=== PATIENT | male | born 1955 | race Caucasian/White ===

== ENCOUNTER 2019-07-25 15:29 | Inpatient (IN) ==
[2019-07-25] MEDS ORDERED: Naloxone 0.4 MG/ML INJ IVP PRN (17:26)
[2019-07-25] MEDS ORDERED: Morphine Sulfate Immed Rel 15 MG TABLET PO PRN (17:29)
[2019-07-25 17:33] LABS: Basophils % 0.4 %; Eosinophils # 0.1 K/mcL (0.0-0.6); Eosinophils % 0.9 %; Hematocrit 37.8 % (37.5-50.1); Hemoglobin 13.1 g/dL (12.9-16.9); Lymphocytes # 1.2 K/mcL (0.6-4.6); Lymphocytes % 11.6 %; Mean Corpuscular HGB Conc 34.7 g/dL (31.6-35.5); Mean Corpuscular Hemoglobin 29.3 pg (28.0-33.3); Mean Corpuscular Volume 84.6 fL (83.0-100.0); Mean Platelet Volume 9.3 fL (9.4-12.4); Monocytes # 0.7 K/mcL (0.0-1.3); Monocytes % 7.1 %; Neutrophils # 8.3 K/mcL (1.6-8.9); Platelet Count 364 K/mcL (140-400); Red Blood Count 4.47 M/mcL (4.19-5.50); Red Cell Distribution Width 13.5 % (11.5-14.5); White Blood Count 10.5 K/mcL (4.3-11.1)
[2019-07-25 17:52] LABS: Alanine Aminotransferase 12 Units/L (7-52); Albumin 3.9 g/dL (3.5-5.7); Albumin/Globulin Ratio 1.4 (1.1-2.2); Alkaline Phosphatase 60 Units/L (34-104); Aspartate Amino Transferase 11 Units/L (13-39); BUN/Creatinine Ratio 9 (6-26); Bilirubin,Total 0.3 mg/dL (0.3-1.0); Blood Urea Nitrogen 6 mg/dL (8-23); Calcium 9.1 mg/dL (8.6-10.3); Carbon Dioxide 27 mEq/L (23-29); Chloride 98 mEq/L (98-107); Globulin 2.7 g/dL (2.4-3.5); Glucose 112 mg/dL (70-105); Osmolality,Calculated 276 (280-300); Sodium 134 mEq/L (136-145); Total Protein 6.6 g/dL (6.4-8.9); eGFR For African Americans > 60 (> 60); eGFR For Non-African Americans > 60 (> 60)
[2019-07-25] MEDS: Ondansetron 4 MG/2 ML VIAL IVP PRN (23:39)
[2019-07-25] MEDS ORDERED: *HR* HYDROmorphone 2 MG TABLET PO ONE (23:48)
[2019-07-26] MEDS ORDERED: NIFEdipine 10 MG CAPSULE PO ONE (02:19)
[2019-07-26] MEDS: Morphine Sulfate Immed Rel 15 MG TABLET PO SCH ×6 (03:15→23:08)
[2019-07-26] MEDS ORDERED: Morphine Sulfate Immed Rel 15 MG TABLET PO SCH (03:15)
[2019-07-26 04:37] LABS: INR 1.1
[2019-07-26 04:55] LABS: BUN/Creatinine Ratio 9 (6-26); Blood Urea Nitrogen 6 mg/dL (8-23); Calcium 9.1 mg/dL (8.6-10.3); Carbon Dioxide 29 mEq/L (23-29); Chloride 98 mEq/L (98-107); Glucose 116 mg/dL (70-105); Osmolality,Calculated 279 (280-300); Potassium 3.9 mEq/L (3.5-5.1); Sodium 135 mEq/L (136-145); eGFR For African Americans > 60 (> 60); eGFR For Non-African Americans > 60 (> 60)
[2019-07-26] MEDS ORDERED: Levalbuterol Neb 1.25 MG/3 ML ONE (05:19)
[2019-07-26] MEDS: Levalbuterol Neb 1.25 MG/3 ML IH SCH ×4 (05:21→21:24)
[2019-07-26] MEDS: *HR* Enoxaparin 40 MG/0.4 ML SYRINGE SQ SCH (06:00)
[2019-07-26] MEDS: Morphine Sulfate ER (12 HR) 30 MG TABLET.ER PO SCH ×2 (08:55→18:01)
[2019-07-26] MEDS ORDERED: TIOTROPIUM 2.5 MCG IH SCH (09:00)
[2019-07-26] MEDS ORDERED: FLUTICASONE PROPIONATE IH SCH (09:00)
[2019-07-26] MEDS: Furosemide 20 MG/2 ML VIAL IVP SCH (09:57)
[2019-07-26] MEDS: amLODIPine 5 MG TABLET PO SCH (09:57)
[2019-07-26] MEDS: Cholecalciferol (D-3) 1,000 UNIT (25MCG) TABLET PO SCH (09:57)
[2019-07-26] MEDS: Cyanocobalamin (B-12) 1,000 MCG TABLET PO SCH (09:57)
[2019-07-26] MEDS ORDERED: Levalbuterol Neb 1.25 MG/3 ML IH SCH (10:00)
[2019-07-26] MEDS: Ipratropium/Albuterol Neb 3 ML IH SCH (10:10)
[2019-07-26] MEDS: Budesonide/Formoterol 160/4.5 1 PUFF INH IH SCH ×2 (10:10→21:24)
[2019-07-26 12:40] LABS: Albumin 3.8 g/dL (3.5-5.7); Albumin/Globulin Ratio 1.4 (1.1-2.2); Globulin 2.8 g/dL (2.4-3.5); Lactate Dehydrogenase 306 Units/L (140-271); Total Protein 6.6 g/dL (6.4-8.9)
[2019-07-26] MEDS: Ondansetron 4 MG/2 ML VIAL IVP PRN ×2 (15:30→23:08)
[2019-07-26] MEDS ORDERED: Isovue-370 500 ML BOTTLE IVP ONE (17:51)
[2019-07-26] MEDS: Morphine Sulfate Immed Rel 15 MG TABLET PO PRN (23:23)
[2019-07-27] MEDS: Levalbuterol Neb 1.25 MG/3 ML IH SCH ×2 (04:12→10:58)
[2019-07-27] MEDS: Morphine Sulfate Immed Rel 15 MG TABLET PO PRN ×2 (04:49→10:27)
[2019-07-27 05:48] LABS: BUN/Creatinine Ratio 14 (6-26); Blood Urea Nitrogen 10 mg/dL (8-23); Calcium 9.6 mg/dL (8.6-10.3); Carbon Dioxide 31 mEq/L (23-29); Chloride 95 mEq/L (98-107); Glucose 110 mg/dL (70-105); Osmolality,Calculated 284 (280-300); Potassium 3.5 mEq/L (3.5-5.1); Sodium 137 mEq/L (136-145); eGFR For African Americans > 60 (> 60); eGFR For Non-African Americans > 60 (> 60)
[2019-07-27] MEDS: *HR* Enoxaparin 40 MG/0.4 ML SYRINGE SQ SCH (06:01)
[2019-07-27] MEDS: Morphine Sulfate ER (12 HR) 30 MG TABLET.ER PO SCH (06:01)
[2019-07-27 07:21] VITALS: BP 141/90
[2019-07-27] MEDS: Cyanocobalamin (B-12) 1,000 MCG TABLET PO SCH (10:27)
[2019-07-27] MEDS: amLODIPine 5 MG TABLET PO SCH (10:27)
[2019-07-27] MEDS: Furosemide 20 MG/2 ML VIAL IVP SCH (10:28)
[2019-07-27] MEDS: Cholecalciferol (D-3) 1,000 UNIT (25MCG) TABLET PO SCH (10:28)
[2019-07-27] MEDS: Ondansetron 4 MG/2 ML VIAL IVP PRN (10:38)
[2019-07-27] MEDS: Budesonide/Formoterol 160/4.5 1 PUFF INH IH SCH (10:58)
[2019-07-27] MEDS: Ipratropium/Albuterol Neb 3 ML IH SCH (10:58)
[2019-07-27] MEDS ORDERED: FLU Vac QV 19-20 (6Month+)/PF 0.5 ML SYRINGE IM ONE (13:58)
== END 2019-07-27 14:38 | disposition home health service (06) | DRG 181 ==
LOC: SUATTDRO → EMEROOARM 15:29 → 2NENU 15:29 → SUATTDRO 18:48 → 2NENU 20:12
PROVIDERS: ADMIT Internal Medicine; ATTEND Internal Medicine

== ENCOUNTER 2019-09-01 16:13 | Inpatient (IN) ==
[2019-09-01] MEDS ORDERED: Isovue-370 500 ML BOTTLE IVP ONE (17:09)
[2019-09-01 17:42] LABS: Basophils % 0.3 %; Eosinophils # 0.2 K/mcL (0.0-0.6); Eosinophils % 5.6 %; Hemoglobin 11.1 g/dL (12.9-16.9); Immature Granulocytes % 0.3 % (0-4); Lymphocytes # 0.7 K/mcL (0.6-4.6); Lymphocytes % 18.1 %; Mean Corpuscular HGB Conc 33.6 g/dL (31.6-35.5); Mean Corpuscular Hemoglobin 28.8 pg (28.0-33.3); Mean Corpuscular Volume 85.5 fL (83.0-100.0); Mean Platelet Volume 9.1 fL (9.4-12.4); Monocytes # 0.8 K/mcL (0.0-1.3); Monocytes % 20.8 %; Platelet Count 220 K/mcL (140-400); Red Blood Count 3.86 M/mcL (4.19-5.50); Red Cell Distribution Width 13.2 % (11.5-14.5); Segmented Neutrophils % 54.9 %; White Blood Count 3.6 K/mcL (4.3-11.1)
[2019-09-01 18:05] LABS: Platelet Estimate Normal (Normal)
[2019-09-01 18:06] LABS: Alanine Aminotransferase 14 Units/L (7-52); Albumin 3.7 g/dL (3.5-5.7); Albumin/Globulin Ratio 1.4 (1.1-2.2); Alkaline Phosphatase 60 Units/L (34-104); Aspartate Amino Transferase 15 Units/L (13-39); BUN/Creatinine Ratio 11 (6-26); Bilirubin,Direct 0.1 mg/dL (0.0-0.2); Bilirubin,Indirect 0.1 mg/dL (0.0-1.0); Bilirubin,Total 0.2 mg/dL (0.3-1.0); Blood Urea Nitrogen 7 mg/dL (8-23); Carbon Dioxide 36 mEq/L (23-29); Chloride 91 mEq/L (98-107); Globulin 2.7 g/dL (2.4-3.5); Glucose 120 mg/dL (70-105); Osmolality,Calculated 281 (280-300); Potassium 3.7 mEq/L (3.5-5.1); Sodium 136 mEq/L (136-145); Total Protein 6.4 g/dL (6.4-8.9); Troponin I < 0.03 ng/mL (< 0.04); eGFR For African Americans > 60 (> 60); eGFR For Non-African Americans > 60 (> 60)
[2019-09-01] MEDS ORDERED: Morphine Sulfate 2 MG/ML SYRINGE IVP STA (20:17)
[2019-09-01] MEDS ORDERED: Ondansetron 4 MG/2 ML VIAL IVP STA (20:33)
[2019-09-01] MEDS ORDERED: Naloxone 0.4 MG/ML INJ IVP PRN (23:18)
[2019-09-01] MEDS ORDERED: Morphine Sulfate Immed Rel 15 MG TABLET PO PRN (23:27)
[2019-09-02] MEDS ORDERED: Acetaminophen 325 MG TABLET PO ONE (01:02)
[2019-09-02] MEDS: Morphine Sulfate Immed Rel 15 MG TABLET PO PRN ×3 (01:32→23:30)
[2019-09-02 05:38] LABS: Hematocrit 36.1 % (37.5-50.1); Hemoglobin 11.5 g/dL (12.9-16.9); Mean Corpuscular HGB Conc 31.9 g/dL (31.6-35.5); Platelet Count 229 K/mcL (140-400); Red Cell Distribution Width 13.2 % (11.5-14.5); Segmented Neutrophils % 30.3 %; White Blood Count 3.9 K/mcL (4.3-11.1)
[2019-09-02 05:39] LABS: Basophils % 0.3 %; Eosinophils # 0.2 K/mcL (0.0-0.6); Eosinophils % 6.2 %; Immature Granulocytes % 0.3 % (0-4); Lymphocytes # 1.6 K/mcL (0.6-4.6); Lymphocytes % 40.8 %; Monocytes # 0.9 K/mcL (0.0-1.3); Monocytes % 22.1 %; Neutrophils # 1.2 K/mcL (1.6-8.9)
[2019-09-02] MEDS ORDERED: Morphine Sulfate ER (12 HR) 30 MG TABLET.ER PO SCH (06:00)
[2019-09-02 06:06] LABS: BUN/Creatinine Ratio 10 (6-26); Blood Urea Nitrogen 7 mg/dL (8-23); Calcium 9.3 mg/dL (8.6-10.3); Carbon Dioxide 41 mEq/L (23-29); Chloride 92 mEq/L (98-107); Glucose 114 mg/dL (70-105); Osmolality,Calculated 289 (280-300); Platelet Estimate Normal (Normal); Potassium 3.7 mEq/L (3.5-5.1); Sodium 140 mEq/L (136-145); eGFR For African Americans > 60 (> 60); eGFR For Non-African Americans > 60 (> 60)
[2019-09-02] MEDS: *HR* Heparin 5,000 UNIT/ML VIAL SQ SCH ×2 (06:13→12:38)
[2019-09-02] MEDS: Morphine Sulfate ER (12 HR) 30 MG TABLET.ER PO SCH ×2 (06:13→18:03)
[2019-09-02] MEDS ORDERED: AIRDUO RESPICLICK IH SCH (09:00)
[2019-09-02] MEDS ORDERED: Furosemide 20 MG TABLET PO SCH (09:00)
[2019-09-02] MEDS: Furosemide 40 MG/4 ML VIAL IVP SCH (10:50)
[2019-09-02] MEDS: amLODIPine 5 MG TABLET PO SCH (10:51)
[2019-09-02] MEDS: Fluticasone Propionate Nasal 50 MCG/SPRAY BOTTLE NS SCH (10:51)
[2019-09-02] MEDS: Budesonide/Formoterol 80/4.5 1 PUFF INH IH SCH ×2 (10:52→20:28)
[2019-09-02 11:41] LABS: INR 1.1; Prothrombin Time 12.9 Seconds (9.4-12.1)
[2019-09-02 14:41] LABS: ABG Base Excess 15 mEq/L (-2 to 3); ABG HCO3 43 mEq/L (21-27); ABG Oxygen Saturation 93 % (95-98); ABG PCO2 75 mmHg (35-45); ABG PH 7.37 pH Units (7.32-7.45); ABG PO2 72 mmHg (85-104); ABG TCO2 45 mEq/L (20-26)
[2019-09-02] MEDS: MethylPREDNISolone 40 MG/ML VIAL IVP SCH (18:03)
[2019-09-02 18:31] LABS: RBC,Pleural Fluid 0.007 M/mcL
[2019-09-02 18:38] LABS: Alanine Aminotransferase 16 Units/L (7-52); Albumin 3.8 g/dL (3.5-5.7); Albumin/Globulin Ratio 1.4 (1.1-2.2); Alkaline Phosphatase 59 Units/L (34-104); Aspartate Amino Transferase 19 Units/L (13-39); Bilirubin,Direct 0.1 mg/dL (0.0-0.2); Bilirubin,Indirect 0.2 mg/dL (0.0-1.0); Bilirubin,Total 0.3 mg/dL (0.3-1.0); Globulin 2.8 g/dL (2.4-3.5); Lactate Dehydrogenase 438 Units/L (140-271); Total Protein 6.6 g/dL (6.4-8.9)
[2019-09-02 19:31] LABS: Glucose,Pleural Fluid 122 mg/dL (No Ref Range); LDH,Pleural Fluid > 1200 Units/L (No Ref Range); Total Protein,Pleural Fluid 4.1 g/dL
[2019-09-02 20:24] LABS: Appearance of Pleural Fl Hazy (Clear); Basophils,Pleural Fluid 0 %; Eosinophils,Pleural Fluid 0 %
[2019-09-03 02:20] LABS: VBG HCO3 39 mEq/L (21-27); VBG PCO2 67 mmHg (41-51); VBG PH 7.38 pH Units (7.32-7.42); VBG PO2 196 mmHg (25-50)
[2019-09-03 02:27] LABS: Hematocrit 30.8 % (37.5-50.1); Hemoglobin 10.1 g/dL (12.9-16.9); Immature Granulocytes % 0.5 % (0-4); Lymphocytes # 0.5 K/mcL (0.6-4.6); Lymphocytes % 23.4 %; Mean Corpuscular HGB Conc 32.8 g/dL (31.6-35.5); Mean Corpuscular Hemoglobin 28.1 pg (28.0-33.3); Mean Corpuscular Volume 85.8 fL (83.0-100.0); Mean Platelet Volume 9.3 fL (9.4-12.4); Monocytes # 0.2 K/mcL (0.0-1.3); Monocytes % 11.2 %; Neutrophils # 1.3 K/mcL (1.6-8.9); Platelet Count 210 K/mcL (140-400); Red Blood Count 3.59 M/mcL (4.19-5.50); Segmented Neutrophils % 64.9 %; White Blood Count 2.1 K/mcL (4.3-11.1)
[2019-09-03 02:47] LABS: BUN/Creatinine Ratio 19 (6-26); Blood Urea Nitrogen 12 mg/dL (8-23); Calcium 8.7 mg/dL (8.6-10.3); Carbon Dioxide 38 mEq/L (23-29); Chloride 95 mEq/L (98-107); Glucose 146 mg/dL (70-105); Osmolality,Calculated 290 (280-300); Potassium 3.7 mEq/L (3.5-5.1); Sodium 139 mEq/L (136-145); eGFR For African Americans > 60 (> 60); eGFR For Non-African Americans > 60 (> 60)
[2019-09-03] MEDS: MethylPREDNISolone 40 MG/ML VIAL IVP SCH ×2 (06:21→17:05)
[2019-09-03] MEDS: Morphine Sulfate ER (12 HR) 30 MG TABLET.ER PO SCH ×2 (06:21→17:05)
[2019-09-03] MEDS: *HR* Enoxaparin 40 MG/0.4 ML SYRINGE SQ SCH (06:25)
[2019-09-03] MEDS: Cyanocobalamin (B-12) 1,000 MCG TABLET PO SCH (08:38)
[2019-09-03] MEDS: amLODIPine 5 MG TABLET PO SCH (08:39)
[2019-09-03] MEDS: Fluticasone Propionate Nasal 50 MCG/SPRAY BOTTLE NS SCH (08:39)
[2019-09-03] MEDS: Furosemide 40 MG/4 ML VIAL IVP SCH (08:39)
[2019-09-03] MEDS ORDERED: Fluticasone Propionate Nasal 50 MCG/SPRAY BOTTLE NS SCH (09:00)
[2019-09-03] MEDS: Budesonide/Formoterol 80/4.5 1 PUFF INH IH SCH ×2 (10:17→19:38)
[2019-09-03] MEDS: Morphine Sulfate Immed Rel 15 MG TABLET PO PRN (11:35)
[2019-09-03] MEDS: Tiotropium 18 MCG inhalation IH SCH (13:10)
[2019-09-04 00:48] LABS: Hematocrit 31.5 % (37.5-50.1); Hemoglobin 10.2 g/dL (12.9-16.9); Mean Corpuscular HGB Conc 32.4 g/dL (31.6-35.5); Mean Corpuscular Hemoglobin 28.5 pg (28.0-33.3); Mean Platelet Volume 9.3 fL (9.4-12.4); Platelet Count 249 K/mcL (140-400); Red Blood Count 3.58 M/mcL (4.19-5.50); Red Cell Distribution Width 13.1 % (11.5-14.5)
[2019-09-04 00:50] LABS: White Blood Count 5.2 K/mcL (4.3-11.1)
[2019-09-04 01:09] LABS: BUN/Creatinine Ratio 22 (6-26); Blood Urea Nitrogen 16 mg/dL (8-23); Calcium 8.8 mg/dL (8.6-10.3); Carbon Dioxide 36 mEq/L (23-29); Chloride 94 mEq/L (98-107); Glucose 123 mg/dL (70-105); Osmolality,Calculated 287 (280-300); Potassium 3.6 mEq/L (3.5-5.1); Sodium 137 mEq/L (136-145); eGFR For African Americans > 60 (> 60); eGFR For Non-African Americans > 60 (> 60)
[2019-09-04] MEDS: Morphine Sulfate Immed Rel 15 MG TABLET PO PRN (03:57)
[2019-09-04] MEDS: *HR* Enoxaparin 40 MG/0.4 ML SYRINGE SQ SCH (05:45)
[2019-09-04] MEDS: MethylPREDNISolone 40 MG/ML VIAL IVP SCH (05:45)
[2019-09-04] MEDS: Morphine Sulfate ER (12 HR) 30 MG TABLET.ER PO SCH (05:45)
[2019-09-04] MEDS: Furosemide 40 MG/4 ML VIAL IVP SCH (07:42)
[2019-09-04] MEDS: Cyanocobalamin (B-12) 1,000 MCG TABLET PO SCH (07:43)
[2019-09-04] MEDS: amLODIPine 5 MG TABLET PO SCH (07:43)
[2019-09-04] MEDS: Budesonide/Formoterol 80/4.5 1 PUFF INH IH SCH (07:48)
[2019-09-04 07:52] VITALS: BP 124/76
[2019-09-04] MEDS: Fluticasone Propionate Nasal 50 MCG/SPRAY BOTTLE NS SCH (08:30)
[2019-09-04] MEDS ORDERED: Sennosides 8.6 MG TABLET PO SCH (09:00)
[2019-09-04] MEDS: Tiotropium 18 MCG inhalation IH SCH (11:31)
== END 2019-09-04 12:51 | disposition home or self-care (01) | DRG 180 ==
LOC: EMEROOARM 16:13 → 2NENU 16:13 → SUATTDRO 22:19 → 2NENU 23:01
PROVIDERS: ADMIT Student in an Organized Health Care Education/Training Program; ATTEND Internal Medicine

== ENCOUNTER 2019-11-03 14:14 | Inpatient (IN) ==
[2019-11-03] MEDS ORDERED: Piperacillin/Tazobactam 3.375 GM in Water for inj. (sterile) 20 ML IVP ONE (14:47)
[2019-11-03 16:05] LABS: Eosinophils % 0.5 %; Hematocrit 26.3 % (37.5-50.1); Hemoglobin 8.1 g/dL (12.9-16.9); Immature Granulocytes % 0.5 % (0-4); Lymphocytes # 0.4 K/mcL (0.6-4.6); Lymphocytes % 20.8 %; Mean Corpuscular HGB Conc 30.8 g/dL (31.6-35.5); Mean Corpuscular Hemoglobin 28.6 pg (28.0-33.3); Mean Corpuscular Volume 92.9 fL (83.0-100.0); Mean Platelet Volume 9.2 fL (9.4-12.4); Monocytes % 35.4 %; Neutrophils # 0.9 K/mcL (1.6-8.9); Platelet Count 221 K/mcL (140-400); Red Blood Count 2.83 M/mcL (4.19-5.50); Red Cell Distribution Width 16.9 % (11.5-14.5); Segmented Neutrophils % 42.8 %; White Blood Count 2.1 K/mcL (4.3-11.1)
[2019-11-03 16:06] LABS: Monocytes # 0.7 K/mcL (0.0-1.3)
[2019-11-03] MEDS ORDERED: 0.9 % Sodium Chloride 1,000 ML IV ONE (16:06)
[2019-11-03 16:25] LABS: Platelet Estimate Slight Decrease (Normal)
[2019-11-03 16:30] LABS: BUN/Creatinine Ratio 13 (6-26); Blood Urea Nitrogen 7 mg/dL (8-23); Calcium 8.7 mg/dL (8.6-10.3); Carbon Dioxide 39 mEq/L (23-29); Chloride 90 mEq/L (98-107); Glucose 129 mg/dL (70-105); Osmolality,Calculated 282 (280-300); Potassium 3.3 mEq/L (3.5-5.1); Sodium 136 mEq/L (136-145); eGFR For African Americans > 60 (> 60); eGFR For Non-African Americans > 60 (> 60)
[2019-11-03 16:31] LABS: Troponin I < 0.03 ng/mL (< 0.04)
[2019-11-03 16:50] LABS: Ferritin 862 ng/mL (20-250)
[2019-11-03] MEDS ORDERED: Potassium Chloride Elixir 20 MEQ/15 ML UDC PO ONE (17:22)
[2019-11-03] MEDS ORDERED: Naloxone 0.4 MG/ML INJ IVP PRN (17:38)
[2019-11-03] MEDS: Budesonide/Formoterol 160/4.5 1 PUFF INH IH SCH (21:43)
[2019-11-03] MEDS ORDERED: Ipratropium/Albuterol Neb 3 ML IH SCH (22:00)
[2019-11-03 22:03] LABS: Adenovirus Not Detected (Not Detect); Bordetella Pertussis Not Detected (Not Detect); Chlamydophila pneumoniae Not Detected (Not Detect); Coronavirus 229E Not Detected (Not Detect); Coronavirus HKU1 Not Detected (Not Detect); Coronavirus NL63 Not Detected (Not Detect); Coronavirus OC43 Not Detected (Not Detect); Human Metapneumovirus Not Detected (Not Detect); Human Rhinovirus/Enterovirus Not Detected (Not Detect); Influenza A Subtype 2009 H1 Not Detected (Not Detect); Influenza B Not Detected (Not Detect); Mycoplasma pneumoniae Not Detected (Not Detect); Parainfluenza Virus 1 Not Detected (Not Detect); Parainfluenza Virus 2 Not Detected (Not Detect); Parainfluenza Virus 3 Not Detected (Not Detect); Parainfluenza Virus 4 Not Detected (Not Detect); Respiratory Syncytial Virus Not Detected (Not Detect)
[2019-11-03] MEDS: *HR* Heparin 5,000 UNIT/ML VIAL SQ SCH (22:19)
[2019-11-03] MEDS ORDERED: Morphine Sulfate Immed Rel 15 MG TABLET PO ONE (22:28)
[2019-11-04] MEDS: Piperacillin/Tazobactam 3.375 GM in 0.9 % Sodium Chloride Mini Bag 100 ML IVPB SCH ×3 (01:39→15:51)
[2019-11-04 03:27] LABS: Appearance of Pleural Fl Hazy (Clear)
[2019-11-04 03:32] LABS: RBC,Pleural Fluid 0.013 M/mcL
[2019-11-04 03:36] LABS: Total Protein,Pleural Fluid 3.9 g/dL
[2019-11-04] MEDS: *HR* Heparin 5,000 UNIT/ML VIAL SQ SCH ×3 (05:15→20:40)
[2019-11-04 05:49] LABS: Basophils % 0.3 %; Eosinophils % 0.3 %; Hematocrit 24.1 % (37.5-50.1); Hemoglobin 7.5 g/dL (12.9-16.9); Immature Granulocytes % 0.3 % (0-4); Lymphocytes # 0.9 K/mcL (0.6-4.6); Lymphocytes % 24.4 %; Mean Corpuscular HGB Conc 31.1 g/dL (31.6-35.5); Mean Corpuscular Hemoglobin 29.1 pg (28.0-33.3); Mean Corpuscular Volume 93.4 fL (83.0-100.0); Mean Platelet Volume 9.3 fL (9.4-12.4); Monocytes % 28.7 %; Neutrophils # 1.6 K/mcL (1.6-8.9); Platelet Count 218 K/mcL (140-400); Red Blood Count 2.58 M/mcL (4.19-5.50); Red Cell Distribution Width 17.2 % (11.5-14.5)
[2019-11-04 05:58] LABS: INR 1.5
[2019-11-04] MEDS ORDERED: Morphine Sulfate ER (12 HR) 30 MG TABLET.ER PO SCH (06:00)
[2019-11-04 06:03] LABS: White Blood Count 3.5 K/mcL (4.3-11.1)
[2019-11-04 06:29] LABS: Platelet Estimate Normal (Normal)
[2019-11-04 06:53] LABS: BUN/Creatinine Ratio 17 (6-26); Blood Urea Nitrogen 8 mg/dL (8-23); Calcium 8.6 mg/dL (8.6-10.3); Carbon Dioxide 36 mEq/L (23-29); Chloride 95 mEq/L (98-107); Glucose 116 mg/dL (70-105); Osmolality,Calculated 285 (280-300); Potassium 3.5 mEq/L (3.5-5.1); Sodium 138 mEq/L (136-145); eGFR For African Americans > 60 (> 60); eGFR For Non-African Americans > 60 (> 60)
[2019-11-04] MEDS: Morphine Sulfate ER (12 HR) 30 MG TABLET.ER PO SCH (07:35)
[2019-11-04] MEDS: Furosemide 40 MG TABLET PO SCH (07:36)
[2019-11-04] MEDS: amLODIPine 5 MG TABLET PO SCH (07:36)
[2019-11-04] MEDS: Budesonide/Formoterol 160/4.5 1 PUFF INH IH SCH (10:04)
[2019-11-04] MEDS: Tiotropium 18 MCG inhalation IH SCH (10:10)
[2019-11-04] MEDS ORDERED: Morphine Sulfate Immed Rel 30 MG TABLET PO PRN (16:23)
[2019-11-04] MEDS: Morphine Sulfate Immed Rel 15 MG TABLET PO PRN (17:26)
[2019-11-05] MEDS: Piperacillin/Tazobactam 3.375 GM in 0.9 % Sodium Chloride Mini Bag 100 ML IVPB SCH ×3 (00:05→15:12)
[2019-11-05] MEDS: Morphine Sulfate Immed Rel 15 MG TABLET PO PRN ×4 (00:20→18:35)
[2019-11-05 01:22] LABS: Basophils % 0.2 %; Eosinophils % 0.2 %; Hematocrit 24.8 % (37.5-50.1); Hemoglobin 7.7 g/dL (12.9-16.9); Immature Granulocytes % 0.7 % (0-4); Immature Reticulocyte % 17.4 % (11.0-38.0); Lymphocytes # 1.1 K/mcL (0.6-4.6); Lymphocytes % 27.5 %; Mean Corpuscular Hemoglobin 28.7 pg (28.0-33.3); Mean Corpuscular Volume 92.5 fL (83.0-100.0); Mean Platelet Volume 9.4 fL (9.4-12.4); Monocytes # 0.8 K/mcL (0.0-1.3); Monocytes % 18.5 %; Neutrophils # 2.2 K/mcL (1.6-8.9); Platelet Count 237 K/mcL (140-400); Red Blood Count 2.68 M/mcL (4.19-5.50); Retculocyte # 0.05 M/mcL (0.05-0.10); Segmented Neutrophils % 52.9 %; White Blood Count 4.1 K/mcL (4.3-11.1)
[2019-11-05 01:34] LABS: % Iron Saturation 11 % (20-55); BUN/Creatinine Ratio 15 (6-26); Blood Urea Nitrogen 8 mg/dL (8-23); Calcium 8.7 mg/dL (8.6-10.3); Carbon Dioxide 38 mEq/L (23-29); Chloride 93 mEq/L (98-107); Glucose 112 mg/dL (70-105); Iron 22 mcg/dL (65-175); Osmolality,Calculated 287 (280-300); Potassium 2.9 mEq/L (3.5-5.1); Sodium 139 mEq/L (136-145); Transferrin 140 mg/dL (203-362); eGFR For African Americans > 60 (> 60); eGFR For Non-African Americans > 60 (> 60)
[2019-11-05 02:04] LABS: Platelet Estimate Normal (Normal); Reactive Lymphocytes Present (Not Present)
[2019-11-05] MEDS: *HR* Heparin 5,000 UNIT/ML VIAL SQ SCH ×3 (06:11→20:58)
[2019-11-05] MEDS: Ipratropium/Albuterol Neb 3 ML IH PRN ×2 (06:24→19:55)
[2019-11-05] MEDS: Furosemide 40 MG TABLET PO SCH (08:23)
[2019-11-05] MEDS: amLODIPine 5 MG TABLET PO SCH (08:23)
[2019-11-05] MEDS: Morphine Sulfate ER (12 HR) 30 MG TABLET.ER PO SCH (08:23)
[2019-11-05] MEDS ORDERED: Iron Sucrose Complex 200 MG in 0.9 % Sodium Chloride 100 ML IVPB SCH (09:15)
[2019-11-05] MEDS: Budesonide/Formoterol 160/4.5 1 PUFF INH IH SCH (10:36)
[2019-11-05] MEDS: Tiotropium 18 MCG inhalation IH SCH (10:39)
[2019-11-05] MEDS ORDERED: Alteplase (Cathflo) 10 MG in 0.9 % Sodium Chloride 30 ML IX ONE (11:43)
[2019-11-05] MEDS: Iron Sucrose Complex 200 MG in 0.9 % Sodium Chloride 100 ML IVPB SCH (14:29)
[2019-11-05] MEDS ORDERED: Acetaminophen 325 MG TABLET PO ONE (19:17)
[2019-11-05] MEDS ORDERED: Ondansetron 4 MG/2 ML VIAL IVP ONE (20:41)
[2019-11-06] MEDS: Piperacillin/Tazobactam 3.375 GM in 0.9 % Sodium Chloride Mini Bag 100 ML IVPB SCH ×4 (00:26→23:36)
[2019-11-06 01:32] LABS: Basophils % 0.1 %; Hematocrit 24.6 % (37.5-50.1); Hemoglobin 7.8 g/dL (12.9-16.9); Immature Granulocytes % 0.8 % (0-4); Lymphocytes # 1.2 K/mcL (0.6-4.6); Lymphocytes % 16.4 %; Mean Corpuscular HGB Conc 31.7 g/dL (31.6-35.5); Mean Corpuscular Hemoglobin 29.2 pg (28.0-33.3); Mean Corpuscular Volume 92.1 fL (83.0-100.0); Mean Platelet Volume 9.5 fL (9.4-12.4); Monocytes # 1.1 K/mcL (0.0-1.3); Monocytes % 14.5 %; Platelet Count 253 K/mcL (140-400); Red Blood Count 2.67 M/mcL (4.19-5.50); Red Cell Distribution Width 17.4 % (11.5-14.5); Segmented Neutrophils % 68.2 %
[2019-11-06 01:34] LABS: White Blood Count 7.3 K/mcL (4.3-11.1)
[2019-11-06 01:52] LABS: BUN/Creatinine Ratio 13 (6-26); Blood Urea Nitrogen 7 mg/dL (8-23); Calcium 8.4 mg/dL (8.6-10.3); Carbon Dioxide 35 mEq/L (23-29); Chloride 94 mEq/L (98-107); Glucose 123 mg/dL (70-105); Osmolality,Calculated 283 (280-300); Potassium 3.5 mEq/L (3.5-5.1); Sodium 137 mEq/L (136-145); eGFR For African Americans > 60 (> 60); eGFR For Non-African Americans > 60 (> 60)
[2019-11-06] MEDS: Ipratropium/Albuterol Neb 3 ML IH PRN (02:09)
[2019-11-06] MEDS: *HR* Heparin 5,000 UNIT/ML VIAL SQ SCH ×3 (05:22→20:19)
[2019-11-06] MEDS: Morphine Sulfate Immed Rel 15 MG TABLET PO PRN ×4 (05:33→19:45)
[2019-11-06] MEDS ORDERED: Isovue-370 500 ML BOTTLE IVP ONE (09:22)
[2019-11-06] MEDS: Furosemide 40 MG/4 ML VIAL IVP SCH (09:54)
[2019-11-06] MEDS: amLODIPine 5 MG TABLET PO SCH (09:55)
[2019-11-06] MEDS: Morphine Sulfate ER (12 HR) 30 MG TABLET.ER PO SCH (09:55)
[2019-11-06] MEDS: Budesonide/Formoterol 160/4.5 1 PUFF INH IH SCH (10:50)
[2019-11-06] MEDS: Tiotropium 18 MCG inhalation IH SCH (10:50)
[2019-11-06] MEDS ORDERED: Aminoglycoside Consult 1 EACH MC ONE (13:30)
[2019-11-06] MEDS: Iron Sucrose Complex 200 MG in 0.9 % Sodium Chloride 100 ML IVPB SCH (15:01)
[2019-11-06 16:08] LABS: Glucose,Pleural Fluid 103 mg/dL (No Ref Range); LDH,Pleural Fluid 287 Units/L (No Ref Range)
[2019-11-07 01:37] LABS: Hematocrit 23.4 % (37.5-50.1); Hemoglobin 7.4 g/dL (12.9-16.9); Mean Corpuscular HGB Conc 31.6 g/dL (31.6-35.5); Mean Corpuscular Hemoglobin 28.5 pg (28.0-33.3); Mean Platelet Volume 9.5 fL (9.4-12.4); Platelet Count 252 K/mcL (140-400); Red Cell Distribution Width 17.3 % (11.5-14.5); White Blood Count 5.1 K/mcL (4.3-11.1)
[2019-11-07 01:57] LABS: BUN/Creatinine Ratio 16 (6-26); Blood Urea Nitrogen 9 mg/dL (8-23); Calcium 8.3 mg/dL (8.6-10.3); Carbon Dioxide 39 mEq/L (23-29); Chloride 93 mEq/L (98-107); Glucose 103 mg/dL (70-105); Osmolality,Calculated 289 (280-300); Potassium 2.9 mEq/L (3.5-5.1); Sodium 140 mEq/L (136-145); eGFR For African Americans > 60 (> 60); eGFR For Non-African Americans > 60 (> 60)
[2019-11-07 04:00] LABS: Fluid Source for Albumin PLEURAL
[2019-11-07] MEDS: *HR* Heparin 5,000 UNIT/ML VIAL SQ SCH (05:29)
[2019-11-07 07:03] VITALS: BP 134/75
[2019-11-07] MEDS ORDERED: Potassium Chloride 40 MEQ, Lidocaine 1% 2 ML in 0.9 % Sodium Chloride 500 ML IVPB ONE (07:56)
[2019-11-07 08:05] LABS: Basophils % 0.2 %; Immature Granulocytes % 1.7 % (0-4); Lymphocytes # 1.2 K/mcL (0.6-4.6); Lymphocytes % 23.7 %; Monocytes # 0.8 K/mcL (0.0-1.3); Monocytes % 14.6 %; Neutrophils # 3.1 K/mcL (1.6-8.9); Segmented Neutrophils % 59.8 %
[2019-11-07 08:18] LABS: Magnesium 1.6 mg/dL (1.6-2.6)
[2019-11-07] MEDS: amLODIPine 5 MG TABLET PO SCH (08:22)
[2019-11-07] MEDS: Piperacillin/Tazobactam 3.375 GM in 0.9 % Sodium Chloride Mini Bag 100 ML IVPB SCH (08:22)
[2019-11-07] MEDS: Morphine Sulfate ER (12 HR) 30 MG TABLET.ER PO SCH (08:22)
[2019-11-07] MEDS: Furosemide 40 MG/4 ML VIAL IVP SCH (08:22)
[2019-11-07] MEDS: Tiotropium 18 MCG inhalation IH SCH (10:27)
[2019-11-07] MEDS: Budesonide/Formoterol 160/4.5 1 PUFF INH IH SCH (11:33)
[2019-11-07] MEDS ORDERED: levoFLOXacin 750 MG TABLET PO SCH (12:00)
[2019-11-07] MEDS: Morphine Sulfate Immed Rel 15 MG TABLET PO PRN (12:01)
== END 2019-11-07 13:31 | disposition home or self-care (01) | DRG 871 ==
LOC: EMEROOARM 14:14 → 2NENU 19:29 → SUATTDRO 19:29 → 2NENU 20:49 → 2ANU 11-04 23:58
PROVIDERS: ADMIT Internal Medicine; ATTEND Family Medicine

== ENCOUNTER 2020-01-07 15:53 | Inpatient (IN) ==
[2020-01-07] MEDS ORDERED: Isovue-370 500 ML BOTTLE IVP ONE (18:04)
[2020-01-07 18:57] LABS: Bilirubin,Urine Negative (Negative); Blood,Urine Negative (Negative); Clarity,Urine Clear (Clear); Color,Urine Yellow (Yellow); Glucose,Urine (UA) Normal (Normal); Ketones,Urine Negative (Negative); Leukocyte Esterase,Urine Negative (Negative); Nitrite,Urine Negative (Negative); Protein,Urine Negative (Neg-Trace); Specific Gravity,Urine 1.009 (1.010-1.025); Urobilinogen,Urine Normal (Normal)
[2020-01-07 20:29] LABS: Hematocrit 27.9 % (37.5-50.1); Hemoglobin 8.8 g/dL (12.9-16.9); Mean Corpuscular HGB Conc 31.5 g/dL (31.6-35.5); Mean Corpuscular Hemoglobin 27.7 pg (28.0-33.3); Mean Corpuscular Volume 87.7 fL (83.0-100.0); Mean Platelet Volume 8.9 fL (9.4-12.4); Nucleated Red Blood Cells 0.5 /100 WBC (0); Platelet Count 435 K/mcL (140-400); Red Blood Count 3.18 M/mcL (4.19-5.50); Red Cell Distribution Width 16.4 % (11.5-14.5); White Blood Count 13.4 K/mcL (4.3-11.1)
[2020-01-07 20:46] LABS: Lymphocytes # 2.7 K/mcL (0.6-4.6); Monocytes # 1.3 K/mcL (0.0-1.3); Neutrophils # 8.6 K/mcL (1.6-8.9)
[2020-01-07 21:00] LABS: Alanine Aminotransferase 10 Units/L (7-52); Albumin 2.9 g/dL (3.5-5.7); Albumin/Globulin Ratio 0.9 (1.1-2.2); Alkaline Phosphatase 80 Units/L (34-104); Aspartate Amino Transferase 24 Units/L (13-39); BUN/Creatinine Ratio 10 (6-26); Bilirubin,Direct 0.1 mg/dL (0.0-0.2); Bilirubin,Indirect 0.1 mg/dL (0.0-1.0); Bilirubin,Total 0.2 mg/dL (0.3-1.0); Blood Urea Nitrogen 5 mg/dL (8-23); Calcium 8.5 mg/dL (8.6-10.3); Carbon Dioxide 40 mEq/L (23-29); Chloride 84 mEq/L (98-107); Globulin 3.2 g/dL (2.4-3.5); Glucose 108 mg/dL (70-105); Osmolality,Calculated 272 (280-300); Potassium 2.3 mEq/L (3.5-5.1); Sodium 132 mEq/L (136-145); Total Protein 6.1 g/dL (6.4-8.9); Troponin I < 0.03 ng/mL (< 0.04); eGFR For African Americans > 60 (> 60); eGFR For Non-African Americans > 60 (> 60)
[2020-01-07 21:13] LABS: Lipase < 3 Units/L (11-82)
[2020-01-07] MEDS ORDERED: Potassium Chloride Elixir 20 MEQ/15 ML UDC GTUBE ONE (21:32)
[2020-01-07] MEDS ORDERED: MetroNIDAZOLE 500 MG/100 ML 500 MG/100 ML BAG IVPB ONE (22:00)
[2020-01-07] MEDS ORDERED: Vancomycin 1,250 MG/262.5 ML IV.SOLN IVPB ONE (22:00)
[2020-01-07] MEDS ORDERED: Cefepime HCl 2,000 MG in Water for inj. (sterile) 20 ML IVP ONE (22:02)
[2020-01-07] MEDS ORDERED: Fluconazole 400 MG/200 ML 400 MG/200 ML BAG IVPB ONE (22:02)
[2020-01-07] MEDS ORDERED: Magnesium Sulfate 1 GM/102 ML PIGGYBACK IVPB ONE (22:40)
[2020-01-08] MEDS ORDERED: Naloxone 0.4 MG/ML INJ IVP PRN (00:17)
[2020-01-08] MEDS ORDERED: Potassium Chloride Elixir 20 MEQ/15 ML UDC PO ONE (00:23)
[2020-01-08] MEDS ORDERED: 0.9 % Sodium Chloride 1,000 ML IVC SCH (00:30)
[2020-01-08] MEDS ORDERED: Vancomycin (wt based) 1,000 MG VIAL IVPB SCH ×2 (01:00→04:00)
[2020-01-08 01:37] LABS: Hematocrit 28.4 % (37.5-50.1); Hemoglobin 8.7 g/dL (12.9-16.9); Mean Corpuscular HGB Conc 30.6 g/dL (31.6-35.5); Mean Corpuscular Hemoglobin 27.8 pg (28.0-33.3); Mean Corpuscular Volume 90.7 fL (83.0-100.0); Mean Platelet Volume 9.2 fL (9.4-12.4); Nucleated Red Blood Cells 0.1 /100 WBC (0); Platelet Count 464 K/mcL (140-400); Red Blood Count 3.13 M/mcL (4.19-5.50); Red Cell Distribution Width 16.6 % (11.5-14.5); White Blood Count 15.6 K/mcL (4.3-11.1)
[2020-01-08 01:43] LABS: INR 1.2; Prothrombin Time 13.8 Seconds (9.4-12.1)
[2020-01-08 01:54] LABS: Basophils # 0.3 K/mcL (0.0-0.2); Lymphocytes # 3.1 K/mcL (0.6-4.6); Monocytes # 1.6 K/mcL (0.0-1.3)
[2020-01-08 01:56] LABS: Alanine Aminotransferase 10 Units/L (7-52); Albumin 2.9 g/dL (3.5-5.7); Albumin/Globulin Ratio 0.9 (1.1-2.2); Alkaline Phosphatase 80 Units/L (34-104); Aspartate Amino Transferase 23 Units/L (13-39); BUN/Creatinine Ratio 9 (6-26); Bilirubin,Total 0.2 mg/dL (0.3-1.0); Blood Urea Nitrogen 5 mg/dL (8-23); Calcium 8.4 mg/dL (8.6-10.3); Carbon Dioxide 38 mEq/L (23-29); Chloride 85 mEq/L (98-107); Globulin 3.4 g/dL (2.4-3.5); Glucose 101 mg/dL (70-105); Magnesium 1.4 mg/dL (1.6-2.6); Osmolality,Calculated 271 (280-300); Phosphorous 2.4 mg/dL (2.7-4.5); Potassium 2.7 mEq/L (3.5-5.1); Sodium 132 mEq/L (136-145); Total Protein 6.3 g/dL (6.4-8.9); eGFR For African Americans > 60 (> 60); eGFR For Non-African Americans > 60 (> 60)
[2020-01-08 02:31] LABS: Estimated Average Glucose 117 mg/dl
[2020-01-08] MEDS ORDERED: *HR* OxyCODONE Immed Rel 15 MG TABLET PO ONE (04:57)
[2020-01-08] MEDS ORDERED: Morphine Sulfate Immed Rel 15 MG TABLET PO ONE (05:01)
[2020-01-08] MEDS ORDERED: Albuterol 2.5 MG/3 ML NEBULIZER IH PRN (05:25)
[2020-01-08] MEDS: Ondansetron ODT 4 MG TAB.RAPDIS SL PRN ×2 (06:51→23:36)
[2020-01-08] MEDS: MetroNIDAZOLE 500 MG/100 ML 500 MG/100 ML BAG IVPB SCH ×2 (07:44→15:48)
[2020-01-08] MEDS ORDERED: Cefepime HCl 2,000 MG in Water for inj. (sterile) 20 ML IVP SCH (08:00)
[2020-01-08] MEDS ORDERED: Morphine Sulfate Immed Rel 15 MG TABLET PO PRN (08:44)
[2020-01-08] MEDS ORDERED: Fluticasone Propionate Nasal 50 MCG/SPRAY BOTTLE NS PRN (08:44)
[2020-01-08] MEDS ORDERED: Potassium Chloride 40 MEQ, Lidocaine 1% 2 ML in 0.9 % Sodium Chloride 500 ML IVPB ONE (08:49)
[2020-01-08] MEDS: Fluconazole 100 MG TABLET PO SCH (09:26)
[2020-01-08] MEDS: Morphine Sulfate ER (12 HR) 60 MG TABLET.ER PO SCH ×2 (09:27→20:58)
[2020-01-08] MEDS: Cyanocobalamin (B-12) 1,000 MCG TABLET PO SCH (09:27)
[2020-01-08] MEDS: Cefepime HCl 2,000 MG in Water for inj. (sterile) 20 ML IVP SCH ×2 (09:27→20:57)
[2020-01-08] MEDS: Cholecalciferol (D-3) 1,000 UNIT (25MCG) TABLET PO SCH (09:41)
[2020-01-08] MEDS: Morphine Sulfate Immed Rel 15 MG TABLET PO PRN (10:37)
[2020-01-08] MEDS: Tiotropium 18 MCG inhalation IH SCH (11:17)
[2020-01-08] MEDS: Budesonide/Formoterol 160/4.5 1 PUFF INH IH SCH ×2 (11:19→20:32)
[2020-01-08] MEDS: OLANZapine 5 MG TAB.RAPDIS PO SCH (20:58)
[2020-01-09] MEDS: MetroNIDAZOLE 500 MG/100 ML 500 MG/100 ML BAG IVPB SCH ×2 (00:52→09:01)
[2020-01-09] MEDS: Morphine Sulfate Immed Rel 15 MG TABLET PO PRN ×3 (00:57→21:38)
[2020-01-09 03:52] LABS: Hematocrit 27.2 % (37.5-50.1); Hemoglobin 8.3 g/dL (12.9-16.9); Mean Corpuscular HGB Conc 30.5 g/dL (31.6-35.5); Mean Corpuscular Hemoglobin 27.6 pg (28.0-33.3); Mean Corpuscular Volume 90.4 fL (83.0-100.0); Mean Platelet Volume 9.1 fL (9.4-12.4); Nucleated Red Blood Cells 0.2 /100 WBC (0); Platelet Count 406 K/mcL (140-400); Red Blood Count 3.01 M/mcL (4.19-5.50); Red Cell Distribution Width 17.2 % (11.5-14.5); White Blood Count 14.6 K/mcL (4.3-11.1)
[2020-01-09 04:03] LABS: Magnesium 1.4 mg/dL (1.6-2.6); Phosphorous 2.7 mg/dL (2.7-4.5)
[2020-01-09 04:04] LABS: BUN/Creatinine Ratio 11 (6-26); Blood Urea Nitrogen 5 mg/dL (8-23); Calcium 8.4 mg/dL (8.6-10.3); Carbon Dioxide 33 mEq/L (23-29); Chloride 94 mEq/L (98-107); Glucose 119 mg/dL (70-105); Osmolality,Calculated 274 (280-300); Potassium 3.4 mEq/L (3.5-5.1); Sodium 133 mEq/L (136-145); eGFR For African Americans > 60 (> 60); eGFR For Non-African Americans > 60 (> 60)
[2020-01-09 04:12] LABS: Lymphocytes # 1.8 K/mcL (0.6-4.6); Monocytes # 1.5 K/mcL (0.0-1.3); Neutrophils # 10.5 K/mcL (1.6-8.9)
[2020-01-09 04:13] LABS: Anisocytosis 1+ (Not Present); Hypochromasia Present (Not Present); Polychromasia 1+ (Not Present)
[2020-01-09] MEDS: Budesonide/Formoterol 160/4.5 1 PUFF INH IH SCH ×2 (07:50→22:18)
[2020-01-09] MEDS: Tiotropium 18 MCG inhalation IH SCH ×2 (07:53→08:08)
[2020-01-09] MEDS: Fluconazole 100 MG TABLET PO SCH (08:59)
[2020-01-09] MEDS: amLODIPine 5 MG TABLET PO SCH (09:00)
[2020-01-09] MEDS: Cholecalciferol (D-3) 1,000 UNIT (25MCG) TABLET PO SCH (09:00)
[2020-01-09] MEDS: Morphine Sulfate ER (12 HR) 60 MG TABLET.ER PO SCH (09:00)
[2020-01-09] MEDS: Cefepime HCl 2,000 MG in Water for inj. (sterile) 20 ML IVP SCH (09:00)
[2020-01-09] MEDS: Cyanocobalamin (B-12) 1,000 MCG TABLET PO SCH (09:00)
[2020-01-09] MEDS ORDERED: 0.9 % Sodium Chloride 500 ML ONE (10:15)
[2020-01-09] MEDS ORDERED: *HR* Midazolam HCl 2 MG/2 ML VIAL IVP ONE (10:48)
[2020-01-09] MEDS ORDERED: *HR* FentaNYL (PF) 100 MCG/2 ML VIAL IVP ONE (10:48)
[2020-01-09 14:45] LABS: ABG Base Excess 8 mEq/L (-2 to 3); ABG HCO3 32 mEq/L (21-27); ABG Oxygen Saturation 99 % (95-98); ABG PCO2 45 mmHg (35-45); ABG PH 7.47 pH Units (7.32-7.45); ABG PO2 116 mmHg (85-104); ABG TCO2 34 mEq/L (20-26)
[2020-01-09] MEDS ORDERED: Isovue-370 500 ML BOTTLE IVP ONE (15:27)
[2020-01-09 15:42] LABS: Hematocrit 28.2 % (37.5-50.1); Hemoglobin 8.7 g/dL (12.9-16.9); Mean Corpuscular HGB Conc 30.9 g/dL (31.6-35.5); Mean Corpuscular Hemoglobin 27.9 pg (28.0-33.3); Mean Corpuscular Volume 90.4 fL (83.0-100.0); Mean Platelet Volume 9.3 fL (9.4-12.4); Nucleated Red Blood Cells 0.1 /100 WBC (0); Platelet Count 389 K/mcL (140-400); Red Blood Count 3.12 M/mcL (4.19-5.50); Red Cell Distribution Width 17.3 % (11.5-14.5)
[2020-01-09 16:08] LABS: White Blood Count 23.4 K/mcL (4.3-11.1)
[2020-01-09 16:15] LABS: Lymphocytes # 0.7 K/mcL (0.6-4.6); Monocytes # 0.7 K/mcL (0.0-1.3); Neutrophils # 20.8 K/mcL (1.6-8.9); Platelet Estimate Normal (Normal); Toxic Granulation Present (Not Present)
[2020-01-09 16:22] LABS: Alanine Aminotransferase 8 Units/L (7-52); Albumin 2.7 g/dL (3.5-5.7); Albumin/Globulin Ratio 0.9 (1.1-2.2); Alkaline Phosphatase 91 Units/L (34-104); Aspartate Amino Transferase 16 Units/L (13-39); BUN/Creatinine Ratio 11 (6-26); Bilirubin,Total 0.3 mg/dL (0.3-1.0); Blood Urea Nitrogen 4 mg/dL (8-23); Calcium 8.9 mg/dL (8.6-10.3); Carbon Dioxide 30 mEq/L (23-29); Chloride 95 mEq/L (98-107); Globulin 3.1 g/dL (2.4-3.5); Glucose 107 mg/dL (70-105); Osmolality,Calculated 273 (280-300); Potassium 3.7 mEq/L (3.5-5.1); Sodium 133 mEq/L (136-145); Total Protein 5.8 g/dL (6.4-8.9); eGFR For African Americans > 60 (> 60); eGFR For Non-African Americans > 60 (> 60)
[2020-01-09] MEDS ORDERED: Ringers Solution, Lactated 1,000 ML IVC ONE (16:35)
[2020-01-09] MEDS ORDERED: *HR* Heparin 5,000 UNIT/ML VIAL IVP PRN ×2 (16:39)
[2020-01-09] MEDS ORDERED: *HR* Heparin 5,000 UNIT/ML VIAL IVP ONE (16:39)
[2020-01-09] MEDS ORDERED: Heparin 25,000 UNIT/250 ML D5W 25,000 UNIT/250 ML IV.SOLN IVC SCH (16:45)
[2020-01-09] MEDS: Acetaminophen IV 1,000 MG/100 ML INFUS..BTL IVPB SCH (16:50)
[2020-01-09] MEDS: Micafungin 100 MG in 0.9 % Sodium Chloride Mini Bag 100 ML IVPB SCH (17:50)
[2020-01-09] MEDS: Aspirin 81 MG TAB.CHEW PO SCH (18:35)
[2020-01-09] MEDS: Meropenem 1,000 MG in 0.9 % Sodium Chloride Mini Bag 100 ML IVPB SCH (18:36)
[2020-01-09 18:47] LABS: Hemoglobin 7.8 g/dL (12.9-16.9)
[2020-01-09 18:48] LABS: Hematocrit 25.5 % (37.5-50.1); Mean Corpuscular HGB Conc 30.6 g/dL (31.6-35.5); Mean Corpuscular Hemoglobin 27.9 pg (28.0-33.3); Mean Corpuscular Volume 91.1 fL (83.0-100.0); Mean Platelet Volume 8.7 fL (9.4-12.4); Platelet Count 353 K/mcL (140-400); Red Cell Distribution Width 17.3 % (11.5-14.5)
[2020-01-09 18:54] LABS: INR 1.3; Prothrombin Time 14.9 Seconds (9.4-12.1)
[2020-01-09 18:56] LABS: Heparin anti-factor XA UFH < 0.04 IU/mL (0.30-0.70)
[2020-01-09 18:59] LABS: White Blood Count 35.2 K/mcL (4.3-11.1)
[2020-01-09] MEDS: OLANZapine 5 MG TAB.RAPDIS PO SCH (21:15)
[2020-01-09] MEDS: Morphine Sulfate ER (12 HR) 15 MG TABLET.ER PO SCH (21:16)
[2020-01-10] MEDS: Acetaminophen IV 1,000 MG/100 ML INFUS..BTL IVPB SCH ×3 (00:24→12:30)
[2020-01-10] MEDS: Meropenem 1,000 MG in 0.9 % Sodium Chloride Mini Bag 100 ML IVPB SCH ×3 (00:25→16:11)
[2020-01-10 04:17] LABS: Red Cell Distribution Width 17.7 % (11.5-14.5)
[2020-01-10 04:19] LABS: Hematocrit 24.8 % (37.5-50.1); Hemoglobin 7.6 g/dL (12.9-16.9); Mean Corpuscular HGB Conc 30.6 g/dL (31.6-35.5); Mean Corpuscular Hemoglobin 27.8 pg (28.0-33.3); Mean Corpuscular Volume 90.8 fL (83.0-100.0); Platelet Count 360 K/mcL (140-400); Red Blood Count 2.73 M/mcL (4.19-5.50)
[2020-01-10 04:26] LABS: BUN/Creatinine Ratio 15 (6-26); Blood Urea Nitrogen 5 mg/dL (8-23); Calcium 8.9 mg/dL (8.6-10.3); Carbon Dioxide 33 mEq/L (23-29); Chloride 100 mEq/L (98-107); Glucose 113 mg/dL (70-105); Osmolality,Calculated 280 (280-300); Potassium 3.8 mEq/L (3.5-5.1); Sodium 136 mEq/L (136-145); eGFR For African Americans > 60 (> 60); eGFR For Non-African Americans > 60 (> 60)
[2020-01-10 04:34] LABS: Troponin I 0.32 ng/mL (< 0.04)
[2020-01-10] MEDS: Morphine Sulfate Immed Rel 15 MG TABLET PO PRN ×2 (04:44→16:22)
[2020-01-10 04:47] LABS: Lymphocytes # 1.6 K/mcL (0.6-4.6); Neutrophils # 23.9 K/mcL (1.6-8.9); Platelet Estimate Normal (Normal); Smudge Cells Present (Not Present)
[2020-01-10 04:48] LABS: Toxic Granulation Present (Not Present)
[2020-01-10] MEDS: Budesonide/Formoterol 160/4.5 1 PUFF INH IH SCH ×2 (07:28→20:23)
[2020-01-10] MEDS: Aspirin 81 MG TAB.CHEW PO SCH (08:10)
[2020-01-10] MEDS: Cyanocobalamin (B-12) 1,000 MCG TABLET PO SCH (08:12)
[2020-01-10] MEDS: Cholecalciferol (D-3) 1,000 UNIT (25MCG) TABLET PO SCH (08:12)
[2020-01-10] MEDS: Tiotropium 18 MCG inhalation IH SCH (08:40)
[2020-01-10] MEDS: amLODIPine 5 MG TABLET PO SCH (10:29)
[2020-01-10] MEDS: Morphine Sulfate ER (12 HR) 15 MG TABLET.ER PO SCH ×2 (11:30→20:37)
[2020-01-10] MEDS ORDERED: Vancomycin 1,250 MG/262.5 ML IV.SOLN IVPB SCH (14:00)
[2020-01-10] MEDS: Micafungin 100 MG in 0.9 % Sodium Chloride Mini Bag 100 ML IVPB SCH (16:12)
[2020-01-10] MEDS ORDERED: Albuterol 2.5 MG/3 ML NEBULIZER IH PRN (17:34)
[2020-01-10] MEDS ORDERED: Fluticasone Propionate Nasal 50 MCG/SPRAY BOTTLE NS PRN (17:34)
[2020-01-10] MEDS ORDERED: Naloxone 0.4 MG/ML INJ IVP PRN (17:34)
[2020-01-10] MEDS ORDERED: *HR* Heparin 5,000 UNIT/ML VIAL SQ SCH (18:00)
[2020-01-10] MEDS: *HR* Heparin 5,000 UNIT/ML VIAL SQ SCH (18:07)
[2020-01-10] MEDS: OLANZapine 5 MG TAB.RAPDIS PO SCH (20:38)
[2020-01-10] MEDS: Vancomycin 1,250 MG/262.5 ML IV.SOLN IVPB SCH (22:46)
[2020-01-11] MEDS: Meropenem 1,000 MG in 0.9 % Sodium Chloride Mini Bag 100 ML IVPB SCH ×4 (01:01→23:32)
[2020-01-11] MEDS: Morphine Sulfate Immed Rel 15 MG TABLET PO PRN (04:54)
[2020-01-11] MEDS: *HR* Heparin 5,000 UNIT/ML VIAL SQ SCH ×2 (04:55→17:30)
[2020-01-11] MEDS: Ondansetron ODT 4 MG TAB.RAPDIS SL PRN ×2 (04:58→21:47)
[2020-01-11] MEDS: Vancomycin 1,250 MG/262.5 ML IV.SOLN IVPB SCH (05:24)
[2020-01-11] MEDS: Budesonide/Formoterol 160/4.5 1 PUFF INH IH SCH ×2 (08:20→20:23)
[2020-01-11] MEDS: Cyanocobalamin (B-12) 1,000 MCG TABLET PO SCH (09:04)
[2020-01-11] MEDS: Cholecalciferol (D-3) 1,000 UNIT (25MCG) TABLET PO SCH (09:04)
[2020-01-11] MEDS: Aspirin 81 MG TAB.CHEW PO SCH (09:05)
[2020-01-11] MEDS: Morphine Sulfate ER (12 HR) 15 MG TABLET.ER PO SCH ×2 (09:06→20:49)
[2020-01-11] MEDS: amLODIPine 5 MG TABLET PO SCH (09:06)
[2020-01-11 10:30] LABS: Hematocrit 28.9 % (37.5-50.1); Hemoglobin 8.7 g/dL (12.9-16.9); Mean Corpuscular HGB Conc 30.1 g/dL (31.6-35.5); Mean Corpuscular Hemoglobin 27.1 pg (28.0-33.3); Platelet Count 360 K/mcL (140-400); Red Blood Count 3.21 M/mcL (4.19-5.50); Red Cell Distribution Width 17.2 % (11.5-14.5); White Blood Count 16.9 K/mcL (4.3-11.1)
[2020-01-11 10:47] LABS: Alanine Aminotransferase 8 Units/L (7-52); Albumin 2.8 g/dL (3.5-5.7); Alkaline Phosphatase 81 Units/L (34-104); Aspartate Amino Transferase 17 Units/L (13-39); BUN/Creatinine Ratio 17 (6-26); Bilirubin,Total 0.2 mg/dL (0.3-1.0); Blood Urea Nitrogen 6 mg/dL (8-23); Calcium 9.4 mg/dL (8.6-10.3); Carbon Dioxide 30 mEq/L (23-29); Chloride 94 mEq/L (98-107); Globulin 2.9 g/dL (2.4-3.5); Glucose 119 mg/dL (70-105); Magnesium 1.2 mg/dL (1.6-2.6); Osmolality,Calculated 269 (280-300); Phosphorous 2.8 mg/dL (2.7-4.5); Potassium 3.9 mEq/L (3.5-5.1); Sodium 130 mEq/L (136-145); Total Protein 5.7 g/dL (6.4-8.9); eGFR For African Americans > 60 (> 60); eGFR For Non-African Americans > 60 (> 60)
[2020-01-11 11:10] LABS: Anisocytosis 1+ (Not Present); Lymphocytes # 1.4 K/mcL (0.6-4.6); Neutrophils # 14.5 K/mcL (1.6-8.9); Platelet Estimate Normal (Normal)
[2020-01-11] MEDS: Micafungin 100 MG in 0.9 % Sodium Chloride Mini Bag 100 ML IVPB SCH (15:59)
[2020-01-11] MEDS: Tiotropium 18 MCG inhalation IH SCH (19:27)
[2020-01-11] MEDS: OLANZapine 5 MG TAB.RAPDIS PO SCH (20:49)
[2020-01-12 03:54] LABS: Basophils # 0.1 K/mcL (0.0-0.2); Basophils % 0.5 %; Hematocrit 27.3 % (37.5-50.1); Hemoglobin 8.3 g/dL (12.9-16.9); Immature Granulocytes % 4.1 % (0-4); Lymphocytes # 1.7 K/mcL (0.6-4.6); Lymphocytes % 10.9 %; Mean Corpuscular HGB Conc 30.4 g/dL (31.6-35.5); Mean Corpuscular Hemoglobin 27.2 pg (28.0-33.3); Mean Corpuscular Volume 89.5 fL (83.0-100.0); Mean Platelet Volume 9.3 fL (9.4-12.4); Monocytes # 1.4 K/mcL (0.0-1.3); Monocytes % 8.8 %; Platelet Count 395 K/mcL (140-400); Red Blood Count 3.05 M/mcL (4.19-5.50); Red Cell Distribution Width 17.3 % (11.5-14.5); Segmented Neutrophils % 75.7 %; White Blood Count 15.8 K/mcL (4.3-11.1)
[2020-01-12 04:12] LABS: Alanine Aminotransferase 8 Units/L (7-52); Albumin 2.6 g/dL (3.5-5.7); Albumin/Globulin Ratio 0.8 (1.1-2.2); Alkaline Phosphatase 79 Units/L (34-104); Aspartate Amino Transferase 13 Units/L (13-39); BUN/Creatinine Ratio 21 (6-26); Bilirubin,Total 0.2 mg/dL (0.3-1.0); Blood Urea Nitrogen 7 mg/dL (8-23); Calcium 9.6 mg/dL (8.6-10.3); Carbon Dioxide 31 mEq/L (23-29); Chloride 97 mEq/L (98-107); Globulin 3.1 g/dL (2.4-3.5); Glucose 111 mg/dL (70-105); Magnesium 1.5 mg/dL (1.6-2.6); Osmolality,Calculated 277 (280-300); Phosphorous 2.5 mg/dL (2.7-4.5); Potassium 3.7 mEq/L (3.5-5.1); Sodium 134 mEq/L (136-145); Total Protein 5.7 g/dL (6.4-8.9); eGFR For African Americans > 60 (> 60); eGFR For Non-African Americans > 60 (> 60)
[2020-01-12] MEDS: *HR* Heparin 5,000 UNIT/ML VIAL SQ SCH ×2 (04:12→18:24)
[2020-01-12] MEDS: Morphine Sulfate Immed Rel 15 MG TABLET PO PRN (04:13)
[2020-01-12] MEDS: Ondansetron ODT 4 MG TAB.RAPDIS SL PRN (08:39)
[2020-01-12] MEDS: amLODIPine 5 MG TABLET PO SCH (08:41)
[2020-01-12] MEDS: Aspirin 81 MG TAB.CHEW PO SCH (08:41)
[2020-01-12] MEDS: Cholecalciferol (D-3) 1,000 UNIT (25MCG) TABLET PO SCH (08:42)
[2020-01-12] MEDS: Cyanocobalamin (B-12) 1,000 MCG TABLET PO SCH (08:42)
[2020-01-12] MEDS: Morphine Sulfate ER (12 HR) 15 MG TABLET.ER PO SCH ×2 (08:43→21:07)
[2020-01-12] MEDS: Meropenem 1,000 MG in 0.9 % Sodium Chloride Mini Bag 100 ML IVPB SCH ×3 (08:46→23:54)
[2020-01-12] MEDS: Budesonide/Formoterol 160/4.5 1 PUFF INH IH SCH ×2 (10:03→20:30)
[2020-01-12] MEDS: Tiotropium 18 MCG inhalation IH SCH (10:04)
[2020-01-12] MEDS: Micafungin 100 MG in 0.9 % Sodium Chloride Mini Bag 100 ML IVPB SCH (18:25)
[2020-01-12] MEDS: OLANZapine 5 MG TAB.RAPDIS PO SCH (21:06)
[2020-01-13] MEDS: Morphine Sulfate Immed Rel 15 MG TABLET PO PRN ×2 (03:20→16:49)
[2020-01-13] MEDS: Ondansetron ODT 4 MG TAB.RAPDIS SL PRN ×2 (03:22→16:50)
[2020-01-13 04:10] LABS: Basophils # 0.1 K/mcL (0.0-0.2); Basophils % 0.6 %; Eosinophils % 0.1 %; Hematocrit 28.2 % (37.5-50.1); Hemoglobin 8.7 g/dL (12.9-16.9); Immature Granulocytes % 3.9 % (0-4); Lymphocytes # 1.5 K/mcL (0.6-4.6); Lymphocytes % 8.7 %; Mean Corpuscular HGB Conc 30.9 g/dL (31.6-35.5); Mean Corpuscular Hemoglobin 27.9 pg (28.0-33.3); Mean Corpuscular Volume 90.4 fL (83.0-100.0); Mean Platelet Volume 9.2 fL (9.4-12.4); Monocytes # 1.3 K/mcL (0.0-1.3); Monocytes % 7.6 %; Neutrophils # 13.6 K/mcL (1.6-8.9); Platelet Count 416 K/mcL (140-400); Red Blood Count 3.12 M/mcL (4.19-5.50); Red Cell Distribution Width 17.2 % (11.5-14.5); Segmented Neutrophils % 79.1 %; White Blood Count 17.2 K/mcL (4.3-11.1)
[2020-01-13 04:23] LABS: Alanine Aminotransferase 9 Units/L (7-52); Albumin 2.8 g/dL (3.5-5.7); Albumin/Globulin Ratio 0.9 (1.1-2.2); Alkaline Phosphatase 82 Units/L (34-104); Aspartate Amino Transferase 17 Units/L (13-39); BUN/Creatinine Ratio 18 (6-26); Bilirubin,Total 0.3 mg/dL (0.3-1.0); Blood Urea Nitrogen 7 mg/dL (8-23); Carbon Dioxide 31 mEq/L (23-29); Chloride 96 mEq/L (98-107); Globulin 3.2 g/dL (2.4-3.5); Glucose 131 mg/dL (70-105); Magnesium 1.5 mg/dL (1.6-2.6); Osmolality,Calculated 278 (280-300); Potassium 3.5 mEq/L (3.5-5.1); Sodium 134 mEq/L (136-145); eGFR For African Americans > 60 (> 60); eGFR For Non-African Americans > 60 (> 60)
[2020-01-13] MEDS: *HR* Heparin 5,000 UNIT/ML VIAL SQ SCH ×2 (05:55→17:00)
[2020-01-13] MEDS: Budesonide/Formoterol 160/4.5 1 PUFF INH IH SCH ×2 (07:47→19:53)
[2020-01-13] MEDS: Tiotropium 18 MCG inhalation IH SCH (07:47)
[2020-01-13] MEDS: Meropenem 1,000 MG in 0.9 % Sodium Chloride Mini Bag 100 ML IVPB SCH ×2 (08:58→15:26)
[2020-01-13] MEDS: Morphine Sulfate ER (12 HR) 15 MG TABLET.ER PO SCH ×2 (09:01→20:28)
[2020-01-13] MEDS: Aspirin 81 MG TAB.CHEW PO SCH (09:02)
[2020-01-13] MEDS: amLODIPine 5 MG TABLET PO SCH (09:03)
[2020-01-13] MEDS: Cyanocobalamin (B-12) 1,000 MCG TABLET PO SCH (09:03)
[2020-01-13] MEDS: Cholecalciferol (D-3) 1,000 UNIT (25MCG) TABLET PO SCH (09:09)
[2020-01-13] MEDS: Fluconazole 100 MG TABLET PO SCH (16:43)
[2020-01-13] MEDS: metroNIDAZOLE 500 MG TABLET PO SCH ×2 (16:49→20:29)
[2020-01-13] MEDS: cefTRIAXone 2,000 MG in Water for inj. (sterile) 20 ML IVP SCH (16:50)
[2020-01-13] MEDS: OLANZapine 5 MG TAB.RAPDIS PO SCH (20:28)
[2020-01-13] MEDS: Sennosides/Docusate Sodium TABLET PO SCH (20:29)
[2020-01-14] MEDS ORDERED: *HR* LORazepam 2 MG/ML VIAL IVP ONE (03:49)
[2020-01-14 05:03] LABS: Basophils # 0.1 K/mcL (0.0-0.2); Basophils % 0.7 %; Eosinophils % 0.1 %; Hematocrit 26.2 % (37.5-50.1); Hemoglobin 8.2 g/dL (12.9-16.9); Immature Granulocytes % 3.1 % (0-4); Lymphocytes # 1.6 K/mcL (0.6-4.6); Mean Corpuscular HGB Conc 31.3 g/dL (31.6-35.5); Mean Corpuscular Volume 89.4 fL (83.0-100.0); Monocytes # 1.4 K/mcL (0.0-1.3); Monocytes % 8.1 %; Neutrophils # 14.1 K/mcL (1.6-8.9); Platelet Count 457 K/mcL (140-400); Red Blood Count 2.93 M/mcL (4.19-5.50); Red Cell Distribution Width 17.4 % (11.5-14.5); White Blood Count 17.9 K/mcL (4.3-11.1)
[2020-01-14] MEDS: *HR* Heparin 5,000 UNIT/ML VIAL SQ SCH ×2 (05:17→17:49)
[2020-01-14 05:22] LABS: Alanine Aminotransferase 8 Units/L (7-52); Albumin 2.8 g/dL (3.5-5.7); Albumin/Globulin Ratio 0.9 (1.1-2.2); Alkaline Phosphatase 68 Units/L (34-104); Aspartate Amino Transferase 15 Units/L (13-39); BUN/Creatinine Ratio 15 (6-26); Bilirubin,Total 0.4 mg/dL (0.3-1.0); Blood Urea Nitrogen 7 mg/dL (8-23); Carbon Dioxide 32 mEq/L (23-29); Chloride 96 mEq/L (98-107); Glucose 117 mg/dL (70-105); Magnesium 1.6 mg/dL (1.6-2.6); Osmolality,Calculated 279 (280-300); Potassium 3.5 mEq/L (3.5-5.1); Sodium 135 mEq/L (136-145); Total Protein 5.8 g/dL (6.4-8.9); eGFR For African Americans > 60 (> 60); eGFR For Non-African Americans > 60 (> 60)
[2020-01-14] MEDS: Budesonide/Formoterol 160/4.5 1 PUFF INH IH SCH ×2 (07:59→21:16)
[2020-01-14] MEDS: Tiotropium 18 MCG inhalation IH SCH (07:59)
[2020-01-14] MEDS ORDERED: QUEtiapine Fumarate 25 MG TABLET PO STA (09:38)
[2020-01-14] MEDS ORDERED: Haloperidol Lactate 5 MG/ML VIAL IM PRN (09:40)
[2020-01-14] MEDS: metroNIDAZOLE 500 MG TABLET PO SCH ×2 (10:00→14:14)
[2020-01-14] MEDS: Morphine Sulfate ER (12 HR) 15 MG TABLET.ER PO SCH ×2 (10:00→20:33)
[2020-01-14] MEDS: amLODIPine 5 MG TABLET PO SCH (10:00)
[2020-01-14] MEDS: Aspirin 81 MG TAB.CHEW PO SCH (10:00)
[2020-01-14] MEDS: Sennosides/Docusate Sodium TABLET PO SCH ×2 (10:00→20:35)
[2020-01-14] MEDS: Fluconazole 100 MG TABLET PO SCH (10:00)
[2020-01-14] MEDS: Cyanocobalamin (B-12) 1,000 MCG TABLET PO SCH (10:00)
[2020-01-14] MEDS: Cholecalciferol (D-3) 1,000 UNIT (25MCG) TABLET PO SCH (10:01)
[2020-01-14] MEDS: Morphine Sulfate Immed Rel 15 MG TABLET PO PRN (14:13)
[2020-01-14] MEDS ORDERED: MetroNIDAZOLE 500 MG/100 ML 500 MG/100 ML BAG IVPB SCH (16:00)
[2020-01-14] MEDS: cefTRIAXone 2,000 MG in Water for inj. (sterile) 20 ML IVP SCH (17:48)
[2020-01-14] MEDS: Fluconazole 400 MG/200 ML 400 MG/200 ML BAG IVPB SCH (17:49)
[2020-01-14] MEDS: OLANZapine 5 MG TAB.RAPDIS PO SCH (20:34)
[2020-01-14] MEDS: Ondansetron ODT 4 MG TAB.RAPDIS SL PRN (21:52)
[2020-01-15] MEDS: Morphine Sulfate Immed Rel 15 MG TABLET PO PRN ×3 (01:27→17:15)
[2020-01-15] MEDS: MetroNIDAZOLE 500 MG/100 ML 500 MG/100 ML BAG IVPB SCH ×2 (01:29→08:50)
[2020-01-15 01:56] LABS: Basophils # 0.1 K/mcL (0.0-0.2); Basophils % 0.6 %; Hematocrit 26.7 % (37.5-50.1); Hemoglobin 8.1 g/dL (12.9-16.9); Immature Granulocytes % 2.1 % (0-4); Lymphocytes # 1.9 K/mcL (0.6-4.6); Lymphocytes % 11.5 %; Mean Corpuscular HGB Conc 30.3 g/dL (31.6-35.5); Mean Corpuscular Hemoglobin 27.4 pg (28.0-33.3); Mean Corpuscular Volume 90.2 fL (83.0-100.0); Mean Platelet Volume 8.8 fL (9.4-12.4); Monocytes # 1.4 K/mcL (0.0-1.3); Monocytes % 8.8 %; Neutrophils # 12.6 K/mcL (1.6-8.9); Platelet Count 472 K/mcL (140-400); Red Blood Count 2.96 M/mcL (4.19-5.50); Red Cell Distribution Width 17.5 % (11.5-14.5); White Blood Count 16.4 K/mcL (4.3-11.1)
[2020-01-15 02:13] LABS: Alanine Aminotransferase 9 Units/L (7-52); Albumin 2.9 g/dL (3.5-5.7); Alkaline Phosphatase 63 Units/L (34-104); Aspartate Amino Transferase 14 Units/L (13-39); BUN/Creatinine Ratio 15 (6-26); Bilirubin,Total 0.3 mg/dL (0.3-1.0); Blood Urea Nitrogen 8 mg/dL (8-23); Calcium 11.4 mg/dL (8.6-10.3); Carbon Dioxide 32 mEq/L (23-29); Chloride 95 mEq/L (98-107); Glucose 101 mg/dL (70-105); Magnesium 1.4 mg/dL (1.6-2.6); Osmolality,Calculated 280 (280-300); Potassium 3.2 mEq/L (3.5-5.1); Sodium 136 mEq/L (136-145); Total Protein 5.9 g/dL (6.4-8.9); eGFR For African Americans > 60 (> 60); eGFR For Non-African Americans > 60 (> 60)
[2020-01-15] MEDS: *HR* Heparin 5,000 UNIT/ML VIAL SQ SCH ×2 (05:07→17:10)
[2020-01-15 05:17] LABS: Phosphorous 3.4 mg/dL (2.7-4.5)
[2020-01-15] MEDS: Budesonide/Formoterol 160/4.5 1 PUFF INH IH SCH ×2 (08:07→20:01)
[2020-01-15] MEDS: Tiotropium 18 MCG inhalation IH SCH (08:07)
[2020-01-15] MEDS ORDERED: Potassium Chloride 40 MEQ, Lidocaine 1% 2 ML in 0.9 % Sodium Chloride 500 ML IVPB ONE (08:16)
[2020-01-15] MEDS: Fluconazole 400 MG/200 ML 400 MG/200 ML BAG IVPB SCH (08:50)
[2020-01-15] MEDS: Sennosides/Docusate Sodium TABLET PO SCH ×2 (08:50→22:28)
[2020-01-15] MEDS: Morphine Sulfate ER (12 HR) 15 MG TABLET.ER PO SCH ×2 (08:51→22:29)
[2020-01-15] MEDS: amLODIPine 5 MG TABLET PO SCH (08:51)
[2020-01-15] MEDS: Cyanocobalamin (B-12) 1,000 MCG TABLET PO SCH (08:51)
[2020-01-15] MEDS: Aspirin 81 MG TAB.CHEW PO SCH (08:51)
[2020-01-15] MEDS: Cholecalciferol (D-3) 1,000 UNIT (25MCG) TABLET PO SCH (08:52)
[2020-01-15] MEDS: cefTRIAXone 2,000 MG in Water for inj. (sterile) 20 ML IVP SCH (17:10)
[2020-01-15] MEDS: metroNIDAZOLE 500 MG TABLET PO SCH ×2 (17:11→22:28)
[2020-01-15] MEDS: OLANZapine 5 MG TAB.RAPDIS PO SCH (22:28)
[2020-01-16 03:42] LABS: Hematocrit 24.8 % (37.5-50.1); Hemoglobin 7.6 g/dL (12.9-16.9); Mean Corpuscular HGB Conc 30.6 g/dL (31.6-35.5); Mean Corpuscular Hemoglobin 27.6 pg (28.0-33.3); Mean Corpuscular Volume 90.2 fL (83.0-100.0); Mean Platelet Volume 8.9 fL (9.4-12.4); Platelet Count 452 K/mcL (140-400); Red Blood Count 2.75 M/mcL (4.19-5.50); Red Cell Distribution Width 17.9 % (11.5-14.5); White Blood Count 17.8 K/mcL (4.3-11.1)
[2020-01-16 04:02] LABS: BUN/Creatinine Ratio 16 (6-26); Blood Urea Nitrogen 9 mg/dL (8-23); Calcium 11.1 mg/dL (8.6-10.3); Carbon Dioxide 32 mEq/L (23-29); Chloride 96 mEq/L (98-107); Glucose 102 mg/dL (70-105); Osmolality,Calculated 277 (280-300); Potassium 3.5 mEq/L (3.5-5.1); Sodium 134 mEq/L (136-145); eGFR For African Americans > 60 (> 60); eGFR For Non-African Americans > 60 (> 60)
[2020-01-16] MEDS: *HR* Heparin 5,000 UNIT/ML VIAL SQ SCH (06:49)
[2020-01-16] MEDS: Budesonide/Formoterol 160/4.5 1 PUFF INH IH SCH (08:34)
[2020-01-16] MEDS: Tiotropium 18 MCG inhalation IH SCH (08:37)
[2020-01-16] MEDS ORDERED: Fluconazole 100 MG TABLET PO SCH (09:00)
[2020-01-16 10:15] VITALS: BP 136/68
[2020-01-16] MEDS: Cyanocobalamin (B-12) 1,000 MCG TABLET PO SCH (10:16)
[2020-01-16] MEDS: amLODIPine 5 MG TABLET PO SCH (10:22)
[2020-01-16] MEDS: Morphine Sulfate ER (12 HR) 15 MG TABLET.ER PO SCH (10:30)
[2020-01-16] MEDS: metroNIDAZOLE 500 MG TABLET PO SCH (10:31)
[2020-01-16] MEDS: Cholecalciferol (D-3) 1,000 UNIT (25MCG) TABLET PO SCH (10:31)
[2020-01-16] MEDS: Sennosides/Docusate Sodium TABLET PO SCH (10:31)
[2020-01-16] MEDS: Aspirin 81 MG TAB.CHEW PO SCH (10:31)
== END 2020-01-16 12:32 | disposition home health service (06) | DRG 871 ==
LOC: 3ANU 15:53 → EMEROOARM 15:53 → SUATTDRO 23:15 → 3ANU 23:55 → SUATTDRO 01-09 13:44 → 2NENU 01-09 14:14 → ICNU 01-09 18:05 → 3ANU 01-10 17:14
PROVIDERS: ADMIT Internal Medicine; ATTEND Family Medicine
PROC: IRDRAIN (2020-01-09 13:00)

== ENCOUNTER 2020-02-12 11:48 | Inpatient (IN) ==
[2020-02-12 13:12] LABS: Basophils % 0.2 %; Eosinophils % 0.1 %; Hematocrit 28.7 % (37.5-50.1); Hemoglobin 8.6 g/dL (12.9-16.9); Immature Granulocytes % 0.7 % (0-4); Lymphocytes # 1.2 K/mcL (0.6-4.6); Lymphocytes % 8.6 %; Mean Corpuscular Hemoglobin 27.8 pg (28.0-33.3); Mean Corpuscular Volume 92.9 fL (83.0-100.0); Mean Platelet Volume 9.5 fL (9.4-12.4); Monocytes # 1.3 K/mcL (0.0-1.3); Monocytes % 9.3 %; Platelet Count 521 K/mcL (140-400); Red Blood Count 3.09 M/mcL (4.19-5.50); Red Cell Distribution Width 16.8 % (11.5-14.5); Segmented Neutrophils % 81.1 %; White Blood Count 13.6 K/mcL (4.3-11.1)
[2020-02-12 13:25] LABS: Troponin I 0.04 ng/mL (< 0.04)
[2020-02-12 13:43] LABS: Acetaminophen < 10 mcg/mL (10-20); BUN/Creatinine Ratio 16 (6-26); Blood Urea Nitrogen 5 mg/dL (8-23); Calcium 10.8 mg/dL (8.6-10.3); Carbon Dioxide 35 mEq/L (23-29); Chloride 92 mEq/L (98-107); Ethanol < 10 mg/dL (Less than 10); Glucose 87 mg/dL (70-105); Magnesium 1.5 mg/dL (1.6-2.6); Osmolality,Calculated 283 (280-300); Phosphorous 2.8 mg/dL (2.7-4.5); Potassium 3.4 mEq/L (3.5-5.1); Salicylate < 2.5 mg/dL (15.0-30.0); Sodium 138 mEq/L (136-145); eGFR For African Americans > 60 (> 60); eGFR For Non-African Americans > 60 (> 60)
[2020-02-12] MEDS ORDERED: Aspirin 81 MG TAB.CHEW PO ONE (14:02)
[2020-02-12 14:16] LABS: Bacteria,Urine Few per hpf (None-Few); Bilirubin,Urine Negative (Negative); Blood,Urine Negative (Negative); Clarity,Urine Clear (Clear); Color,Urine Light-Yellow (Yellow); Glucose,Urine (UA) Normal (Normal); Granular Casts,Urine Few per lpf (None Seen); Hyaline Casts,Urine Few per lpf (None Seen); Ketones,Urine 60 mg/dL (Negative); Leukocyte Esterase,Urine Negative (Negative); Mucus,Urine Few per lpf (None-Few); Nitrite,Urine Negative (Negative); Protein,Urine 30 mg/dL (Neg-Trace); RBC,Urine 0-3 per hpf (0-3); Specific Gravity,Urine 1.016 (1.010-1.025); Squamous Epithelial Cell,Urine Few per hpf (None-Few); Transitional Epi Cells,Urine Few per hpf (None-Few); Urobilinogen,Urine Normal (Normal); WBC,Urine 0-3 per hpf (0-3)
[2020-02-12 14:19] LABS: Amphetamine Screen,Urine Negative ng/mL (Cutoff=1000); Barbiturate Screen,Urine Negative ng/mL (Cutoff=200); Benzodiazepines Screen,Urine Positive ng/mL (Cutoff=200); Cannabinoid Screen,Urine Negative ng/mL (Cutoff = 50); Cocaine Screen,Urine Negative ng/mL (Cutoff= 300); Opiate Screen,Urine Positive ng/mL (Cutoff=300); Phencyclidine Screen,Urine Negative ng/mL (Cutoff=25)
[2020-02-12] MEDS ORDERED: 0.9 % Sodium Chloride 500 ML IVC ONE (14:31)
[2020-02-12] MEDS ORDERED: Ondansetron 4 MG/2 ML VIAL IVP PRN (15:03)
[2020-02-12] MEDS ORDERED: Naloxone 0.4 MG/ML INJ IVP PRN (15:03)
[2020-02-12] MEDS ORDERED: cefTRIAXone 1,000 MG in Water for inj. (sterile) 10 ML IVP SCH (17:00)
[2020-02-12] MEDS ORDERED: Ipratropium/Albuterol Neb 3 ML IH PRN (19:01)
[2020-02-12] MEDS: Ringers Solution, Lactated 1,000 ML IVC SCH (21:23)
[2020-02-12] MEDS ORDERED: Morphine Sulfate Immed Rel 15 MG TABLET PO PRN (22:29)
[2020-02-12] MEDS ORDERED: Fluticasone Propionate Nasal 50 MCG/SPRAY BOTTLE NS PRN (22:29)
[2020-02-13 01:48] LABS: Basophils % 0.1 %; Hematocrit 29.1 % (37.5-50.1); Hemoglobin 8.9 g/dL (12.9-16.9); Lymphocytes # 1.1 K/mcL (0.6-4.6); Lymphocytes % 7.2 %; Mean Corpuscular HGB Conc 30.6 g/dL (31.6-35.5); Mean Corpuscular Hemoglobin 27.6 pg (28.0-33.3); Mean Corpuscular Volume 90.1 fL (83.0-100.0); Mean Platelet Volume 8.7 fL (9.4-12.4); Monocytes # 1.3 K/mcL (0.0-1.3); Monocytes % 8.6 %; Neutrophils # 12.5 K/mcL (1.6-8.9); Platelet Count 539 K/mcL (140-400); Red Blood Count 3.23 M/mcL (4.19-5.50); Segmented Neutrophils % 83.1 %
[2020-02-13 02:05] LABS: BUN/Creatinine Ratio 13 (6-26); Blood Urea Nitrogen 4 mg/dL (8-23); Calcium 10.3 mg/dL (8.6-10.3); Carbon Dioxide 36 mEq/L (23-29); Chloride 91 mEq/L (98-107); Glucose 105 mg/dL (70-105); Magnesium 1.5 mg/dL (1.6-2.6); Osmolality,Calculated 283 (280-300); Potassium 2.9 mEq/L (3.5-5.1); Sodium 138 mEq/L (136-145); eGFR For African Americans > 60 (> 60); eGFR For Non-African Americans > 60 (> 60)
[2020-02-13 02:07] LABS: % Iron Saturation 24 % (20-55); Iron 34 mcg/dL (65-175); Transferrin 101 mg/dL (203-362)
[2020-02-13 02:27] LABS: Ferritin 688 ng/mL (20-250)
[2020-02-13 02:34] LABS: Folate 4.2 ng/mL (3.0-16.0)
[2020-02-13 02:36] LABS: Vitamin B12 > 1500 pg/mL (250-1100)
[2020-02-13] MEDS ORDERED: *HR* Heparin 5,000 UNIT/ML VIAL IVP ONE (02:37)
[2020-02-13] MEDS ORDERED: *HR* Heparin 5,000 UNIT/ML VIAL IVP PRN (02:37)
[2020-02-13] MEDS: Heparin 25,000 UNIT/250 ML D5W 25,000 UNIT/250 ML IV.SOLN IVC SCH (03:22)
[2020-02-13 03:41] LABS: Heparin anti-factor XA UFH 0.06 IU/mL (0.30-0.70); INR 1.3; Prothrombin Time 14.2 Seconds (9.4-12.1)
[2020-02-13 03:43] LABS: Activated Partial Thrombo Time 25.3 Seconds (26.0-36.0)
[2020-02-13] MEDS ORDERED: *HR* Enoxaparin 40 MG/0.4 ML SYRINGE SQ SCH (07:00)
[2020-02-13] MEDS ORDERED: Potassium Chloride 40 MEQ, Lidocaine 1% 2 ML in 0.9 % Sodium Chloride 500 ML IVPB ONE (07:36)
[2020-02-13] MEDS ORDERED: Perflutren Lipid Microsphere 1.3 ML in 0.9 % Sodium Chloride 8.7 ML IVP PRN (07:39)
[2020-02-13] MEDS ORDERED: CYANOCOBALAMIN PO SCH (09:00)
[2020-02-13] MEDS: Cholecalciferol (D-3) 1,000 UNIT (25MCG) TABLET PO SCH (09:16)
[2020-02-13] MEDS: Aspirin 81 MG TAB.CHEW PO SCH (09:16)
[2020-02-13 12:53] LABS: Troponin I 1.4 ng/mL (< 0.04)
[2020-02-13 12:59] LABS: Albumin 2.8 g/dL (3.5-5.7); Bilirubin,Direct 0.1 mg/dL (0.0-0.2); Bilirubin,Indirect 0.1 mg/dL (0.0-1.0); Bilirubin,Total 0.2 mg/dL (0.3-1.0); Globulin 2.9 g/dL (2.4-3.5); Total Protein 5.7 g/dL (6.4-8.9)
[2020-02-13] MEDS ORDERED: Vancomycin 1,250 MG/262.5 ML IV.SOLN IVPB ONE (16:15)
[2020-02-13] MEDS: Metoprolol XL (24 HR) Succ 25 MG TAB.ER.24H PO SCH (16:34)
[2020-02-13] MEDS ORDERED: Ringers Solution, Lactated 500 ML IVC ONE ×2 (16:36→17:10)
[2020-02-13] MEDS: Furosemide 40 MG/4 ML VIAL IVP SCH (17:47)
[2020-02-13] MEDS: Ringers Solution, Lactated 1,000 ML IVC SCH (18:25)
[2020-02-13] MEDS: *HR* Heparin 5,000 UNIT/ML VIAL IVP PRN (18:32)
[2020-02-13] MEDS: OLANZapine 10 MG TAB.RAPDIS PO SCH (22:16)
[2020-02-13] MEDS: Morphine Sulfate Immed Rel 15 MG TABLET PO PRN (22:16)
[2020-02-14 01:13] LABS: Basophils # 0.1 K/mcL (0.0-0.2); Basophils % 0.5 %; Hematocrit 28.9 % (37.5-50.1); Hemoglobin 8.8 g/dL (12.9-16.9); Lymphocytes % 6.8 %; Mean Corpuscular HGB Conc 30.4 g/dL (31.6-35.5); Mean Corpuscular Volume 88.7 fL (83.0-100.0); Monocytes # 1.2 K/mcL (0.0-1.3); Monocytes % 8.4 %; Neutrophils # 11.9 K/mcL (1.6-8.9); Platelet Count 588 K/mcL (140-400); Red Blood Count 3.26 M/mcL (4.19-5.50); Red Cell Distribution Width 16.6 % (11.5-14.5); Segmented Neutrophils % 81.3 %; White Blood Count 14.6 K/mcL (4.3-11.1)
[2020-02-14 01:33] LABS: BUN/Creatinine Ratio 29 (6-26); Blood Urea Nitrogen 10 mg/dL (8-23); Calcium 10.1 mg/dL (8.6-10.3); Carbon Dioxide 38 mEq/L (23-29); Chloride 93 mEq/L (98-107); Glucose 134 mg/dL (70-105); Magnesium 1.4 mg/dL (1.6-2.6); Osmolality,Calculated 293 (280-300); Potassium 2.7 mEq/L (3.5-5.1); Sodium 141 mEq/L (136-145); eGFR For African Americans > 60 (> 60); eGFR For Non-African Americans > 60 (> 60)
[2020-02-14] MEDS: Piperacillin/Tazobactam 3.375 GM in 0.9 % Sodium Chloride Mini Bag 100 ML IVPB SCH ×4 (02:37→23:25)
[2020-02-14] MEDS: Levalbuterol Neb 1.25 MG/3 ML IH SCH ×6 (03:54→23:13)
[2020-02-14] MEDS: Heparin 25,000 UNIT/250 ML D5W 25,000 UNIT/250 ML IV.SOLN IVC SCH ×2 (04:55→21:25)
[2020-02-14] MEDS: Furosemide 40 MG/4 ML VIAL IVP SCH (04:59)
[2020-02-14] MEDS: Ringers Solution, Lactated 1,000 ML IVC SCH ×2 (06:09→21:16)
[2020-02-14] MEDS: lisinopriL 5 MG TABLET PO SCH (09:11)
[2020-02-14] MEDS: Cholecalciferol (D-3) 1,000 UNIT (25MCG) TABLET PO SCH (09:11)
[2020-02-14] MEDS: Metoprolol XL (24 HR) Succ 25 MG TAB.ER.24H PO SCH (09:11)
[2020-02-14] MEDS: Spironolactone 25 MG TABLET PO SCH (09:11)
[2020-02-14] MEDS: Aspirin 81 MG TAB.CHEW PO SCH (09:11)
[2020-02-14] MEDS ORDERED: Metoprolol XL (24 HR) Succ 25 MG TAB.ER.24H PO ONE (10:15)
[2020-02-14] MEDS: *HR* Heparin 5,000 UNIT/ML VIAL IVP PRN (12:50)
[2020-02-14 18:39] LABS: VBG HCO3 40 mEq/L (21-27); VBG PCO2 52 mmHg (41-51); VBG PO2 181 mmHg (25-50)
[2020-02-14] MEDS ORDERED: Furosemide 40 MG/4 ML VIAL IVP ONE (18:59)
[2020-02-14] MEDS: OLANZapine 10 MG TAB.RAPDIS PO SCH (21:17)
[2020-02-15] MEDS: Morphine Sulfate Immed Rel 15 MG TABLET PO PRN ×4 (02:32→23:11)
[2020-02-15] MEDS: Levalbuterol Neb 1.25 MG/3 ML IH SCH ×5 (03:56→20:05)
[2020-02-15 04:07] LABS: Basophils # 0.1 K/mcL (0.0-0.2); Basophils % 0.3 %; Hematocrit 28.2 % (37.5-50.1); Hemoglobin 8.6 g/dL (12.9-16.9); Immature Granulocytes % 3.5 % (0-4); Lymphocytes # 1.2 K/mcL (0.6-4.6); Lymphocytes % 6.3 %; Mean Corpuscular HGB Conc 30.5 g/dL (31.6-35.5); Mean Corpuscular Hemoglobin 27.8 pg (28.0-33.3); Mean Corpuscular Volume 91.3 fL (83.0-100.0); Mean Platelet Volume 8.9 fL (9.4-12.4); Monocytes # 1.8 K/mcL (0.0-1.3); Monocytes % 9.6 %; Neutrophils # 14.7 K/mcL (1.6-8.9); Platelet Count 526 K/mcL (140-400); Red Blood Count 3.09 M/mcL (4.19-5.50); Red Cell Distribution Width 17.2 % (11.5-14.5); Segmented Neutrophils % 80.3 %; White Blood Count 18.3 K/mcL (4.3-11.1)
[2020-02-15 04:31] LABS: BUN/Creatinine Ratio 23 (6-26); Blood Urea Nitrogen 9 mg/dL (8-23); Calcium 10.1 mg/dL (8.6-10.3); Carbon Dioxide 42 mEq/L (23-29); Chloride 93 mEq/L (98-107); Glucose 119 mg/dL (70-105); Magnesium 1.5 mg/dL (1.6-2.6); Osmolality,Calculated 294 (280-300); Sodium 142 mEq/L (136-145); eGFR For African Americans > 60 (> 60); eGFR For Non-African Americans > 60 (> 60)
[2020-02-15] MEDS: Vancomycin 1,250 MG/262.5 ML IV.SOLN IVPB SCH ×2 (05:40→18:12)
[2020-02-15] MEDS ORDERED: Potassium Chloride 40 MEQ, Lidocaine 1% 2 ML in 0.9 % Sodium Chloride 500 ML IVPB ONE (07:46)
[2020-02-15] MEDS: Piperacillin/Tazobactam 3.375 GM in 0.9 % Sodium Chloride Mini Bag 100 ML IVPB SCH ×3 (09:45→23:01)
[2020-02-15] MEDS: Furosemide 40 MG/4 ML VIAL IVP SCH (09:47)
[2020-02-15] MEDS: Metoprolol XL (24 HR) Succ 50 MG TAB.ER.24H PO SCH (09:48)
[2020-02-15] MEDS: lisinopriL 5 MG TABLET PO SCH (09:48)
[2020-02-15] MEDS: Cholecalciferol (D-3) 1,000 UNIT (25MCG) TABLET PO SCH (09:48)
[2020-02-15] MEDS: Aspirin 81 MG TAB.CHEW PO SCH (09:48)
[2020-02-15] MEDS: Spironolactone 25 MG TABLET PO SCH (09:48)
[2020-02-15] MEDS: Ringers Solution, Lactated 1,000 ML IVC SCH (11:57)
[2020-02-15] MEDS: Heparin 25,000 UNIT/250 ML D5W 25,000 UNIT/250 ML IV.SOLN IVC SCH ×2 (14:28→14:35)
[2020-02-15] MEDS ORDERED: Zoledronic Acid (Zometa) 4 MG in 0.9 % Sodium Chloride 100 ML IV ONE (16:03)
[2020-02-15] MEDS: OLANZapine 10 MG TAB.RAPDIS PO SCH (19:56)
[2020-02-16] MEDS: Levalbuterol Neb 1.25 MG/3 ML IH SCH ×7 (00:08→23:43)
[2020-02-16] MEDS ORDERED: *HR* LORazepam 2 MG/ML VIAL IVP ONE (00:24)
[2020-02-16] MEDS: Ringers Solution, Lactated 1,000 ML IVC SCH ×3 (01:42→18:34)
[2020-02-16 02:22] LABS: Basophils # 0.1 K/mcL (0.0-0.2); Basophils % 0.3 %; Hemoglobin 7.9 g/dL (12.9-16.9); Immature Granulocytes % 3.9 % (0-4); Lymphocytes # 1.1 K/mcL (0.6-4.6); Lymphocytes % 6.7 %; Mean Corpuscular HGB Conc 30.4 g/dL (31.6-35.5); Mean Corpuscular Hemoglobin 27.9 pg (28.0-33.3); Mean Corpuscular Volume 91.9 fL (83.0-100.0); Mean Platelet Volume 9.2 fL (9.4-12.4); Monocytes # 1.5 K/mcL (0.0-1.3); Monocytes % 9.4 %; Neutrophils # 12.7 K/mcL (1.6-8.9); Platelet Count 441 K/mcL (140-400); Red Blood Count 2.83 M/mcL (4.19-5.50); Red Cell Distribution Width 17.4 % (11.5-14.5); Segmented Neutrophils % 79.7 %; White Blood Count 15.9 K/mcL (4.3-11.1)
[2020-02-16 02:23] LABS: VBG Ionized Calcium 1.33 mmol/L (1.15-1.35)
[2020-02-16 02:41] LABS: Albumin 2.6 g/dL (3.5-5.7); Bilirubin,Indirect 0.2 mg/dL (0.0-1.0); Bilirubin,Total 0.2 mg/dL (0.3-1.0); Globulin 2.5 g/dL (2.4-3.5); Total Protein 5.1 g/dL (6.4-8.9)
[2020-02-16 02:45] LABS: BUN/Creatinine Ratio 17 (6-26); Blood Urea Nitrogen 10 mg/dL (8-23); Carbon Dioxide 43 mEq/L (23-29); Chloride 95 mEq/L (98-107); Glucose 108 mg/dL (70-105); Magnesium 1.7 mg/dL (1.6-2.6); Osmolality,Calculated 296 (280-300); Potassium 2.9 mEq/L (3.5-5.1); Sodium 143 mEq/L (136-145); eGFR For African Americans > 60 (> 60); eGFR For Non-African Americans > 60 (> 60)
[2020-02-16] MEDS ORDERED: Morphine Sulfate 2 MG/ML SYRINGE IVP ONE (03:19)
[2020-02-16] MEDS: Vancomycin 1,250 MG/262.5 ML IV.SOLN IVPB SCH ×2 (05:02→18:33)
[2020-02-16] MEDS: Heparin 25,000 UNIT/250 ML D5W 25,000 UNIT/250 ML IV.SOLN IVC SCH (07:22)
[2020-02-16] MEDS ORDERED: Lactulose Oral Soln 20 GM/30 ML UDC PO ONE (07:44)
[2020-02-16] MEDS ORDERED: Potassium Chloride 40 MEQ, Lidocaine 1% 2 ML in 0.9 % Sodium Chloride 500 ML IVPB ONE (07:45)
[2020-02-16] MEDS: Cholecalciferol (D-3) 1,000 UNIT (25MCG) TABLET PO SCH (08:52)
[2020-02-16] MEDS: lisinopriL 5 MG TABLET PO SCH (08:53)
[2020-02-16] MEDS: Spironolactone 25 MG TABLET PO SCH (08:53)
[2020-02-16] MEDS: Aspirin 81 MG TAB.CHEW PO SCH (08:53)
[2020-02-16] MEDS: Metoprolol XL (24 HR) Succ 50 MG TAB.ER.24H PO SCH (08:53)
[2020-02-16] MEDS: Piperacillin/Tazobactam 3.375 GM in 0.9 % Sodium Chloride Mini Bag 100 ML IVPB SCH ×3 (10:22→23:36)
[2020-02-16] MEDS: Furosemide 40 MG/4 ML VIAL IVP SCH ×2 (10:23→21:57)
[2020-02-16] MEDS: Morphine Sulfate Immed Rel 15 MG TABLET PO PRN ×2 (11:15→19:53)
[2020-02-16] MEDS ORDERED: Furosemide 40 MG/4 ML VIAL IVP SCH (13:30)
[2020-02-16] MEDS ORDERED: Furosemide 40 MG/4 ML VIAL IVP ONE (14:12)
[2020-02-16] MEDS: Lactulose Oral Soln 20 GM/30 ML UDC PO SCH (21:56)
[2020-02-16] MEDS: OLANZapine 10 MG TAB.RAPDIS PO SCH (21:56)
[2020-02-17] MEDS: Acetaminophen 325 MG TABLET PO PRN ×2 (00:28→16:41)
[2020-02-17 02:02] LABS: VBG Ionized Calcium 1.25 mmol/L (1.15-1.35)
[2020-02-17] MEDS: Levalbuterol Neb 1.25 MG/3 ML IH SCH ×6 (03:48→23:03)
[2020-02-17 08:17] LABS: Basophils # 0.1 K/mcL (0.0-0.2); Basophils % 0.3 %; Hematocrit 30.8 % (37.5-50.1); Hemoglobin 9.1 g/dL (12.9-16.9); Immature Granulocytes % 2.1 % (0-4); Lymphocytes # 0.6 K/mcL (0.6-4.6); Mean Corpuscular HGB Conc 29.5 g/dL (31.6-35.5); Mean Corpuscular Hemoglobin 27.3 pg (28.0-33.3); Mean Corpuscular Volume 92.5 fL (83.0-100.0); Mean Platelet Volume 9.1 fL (9.4-12.4); Monocytes # 0.9 K/mcL (0.0-1.3); Monocytes % 4.7 %; Neutrophils # 16.7 K/mcL (1.6-8.9); Platelet Count 385 K/mcL (140-400); Red Blood Count 3.33 M/mcL (4.19-5.50); Red Cell Distribution Width 17.9 % (11.5-14.5); Segmented Neutrophils % 89.9 %; White Blood Count 18.6 K/mcL (4.3-11.1)
[2020-02-17] MEDS: Furosemide 40 MG/4 ML VIAL IVP SCH ×2 (08:36→20:41)
[2020-02-17 08:48] LABS: Alanine Aminotransferase 5 Units/L (7-52); Albumin/Globulin Ratio 1.1 (1.1-2.2); Alkaline Phosphatase 44 Units/L (34-104); Aspartate Amino Transferase 10 Units/L (13-39); BUN/Creatinine Ratio 16 (6-26); Bilirubin,Indirect 0.3 mg/dL (0.0-1.0); Bilirubin,Total 0.3 mg/dL (0.3-1.0); Blood Urea Nitrogen 12 mg/dL (8-23); Calcium 9.8 mg/dL (8.6-10.3); Carbon Dioxide > 45 mEq/L (23-29); Chloride 92 mEq/L (98-107); Globulin 2.7 g/dL (2.4-3.5); Glucose 119 mg/dL (70-105); Magnesium 1.5 mg/dL (1.6-2.6); Osmolality,Calculated 311 (280-300); Phosphorous 4.2 mg/dL (2.7-4.5); Potassium 2.5 mEq/L (3.5-5.1); Sodium 150 mEq/L (136-145); Total Protein 5.7 g/dL (6.4-8.9); eGFR For African Americans > 60 (> 60); eGFR For Non-African Americans > 60 (> 60)
[2020-02-17] MEDS: Spironolactone 25 MG TABLET PO SCH (08:58)
[2020-02-17] MEDS: Piperacillin/Tazobactam 3.375 GM in 0.9 % Sodium Chloride Mini Bag 100 ML IVPB SCH (08:58)
[2020-02-17] MEDS: Aspirin 81 MG TAB.CHEW PO SCH (08:58)
[2020-02-17] MEDS: Cholecalciferol (D-3) 1,000 UNIT (25MCG) TABLET PO SCH (08:59)
[2020-02-17] MEDS: Lactulose Oral Soln 20 GM/30 ML UDC PO SCH ×2 (08:59→20:43)
[2020-02-17] MEDS: Metoprolol XL (24 HR) Succ 50 MG TAB.ER.24H PO SCH (08:59)
[2020-02-17] MEDS: lisinopriL 5 MG TABLET PO SCH (09:00)
[2020-02-17] MEDS ORDERED: Potassium Chloride Elixir 20 MEQ/15 ML UDC PO ONE (10:17)
[2020-02-17] MEDS: Morphine Sulfate Oral CONC 10 MG/0.5 ML ORAL.SYG SL PRN ×2 (11:08→15:07)
[2020-02-17] MEDS ORDERED: Aminoglycoside Consult 1 EACH MC ONE (15:05)
[2020-02-17] MEDS: Morphine Sulfate ER (12 HR) 60 MG TABLET.ER PO SCH (18:44)
[2020-02-17] MEDS: OLANZapine 10 MG TAB.RAPDIS PO SCH (20:45)
[2020-02-17] MEDS: Doxycycline 100 MG CAPSULE PO SCH (20:45)
[2020-02-17] MEDS ORDERED: Acetaminophen IV 1,000 MG/100 ML INFUS..BTL IVPB ONE (20:51)
[2020-02-18] MEDS: Levalbuterol Neb 1.25 MG/3 ML IH SCH ×7 (04:22→23:53)
[2020-02-18] MEDS: Morphine Sulfate ER (12 HR) 60 MG TABLET.ER PO SCH ×2 (06:00→16:42)
[2020-02-18] MEDS: *HR* Enoxaparin 40 MG/0.4 ML SYRINGE SQ SCH (06:00)
[2020-02-18 06:25] LABS: BUN/Creatinine Ratio 18 (6-26); Blood Urea Nitrogen 15 mg/dL (8-23); Calcium 8.6 mg/dL (8.6-10.3); Carbon Dioxide > 45 mEq/L (23-29); Chloride 90 mEq/L (98-107); Glucose 109 mg/dL (70-105); Magnesium 1.5 mg/dL (1.6-2.6); Osmolality,Calculated 301 (280-300); Potassium 2.5 mEq/L (3.5-5.1); Sodium 145 mEq/L (136-145); eGFR For African Americans > 60 (> 60); eGFR For Non-African Americans > 60 (> 60)
[2020-02-18] MEDS ORDERED: Potassium Chloride 40 MEQ, Lidocaine 1% 2 ML in 0.9 % Sodium Chloride 500 ML IVPB ONE (06:40)
[2020-02-18] MEDS: Doxycycline 100 MG CAPSULE PO SCH ×2 (08:00→20:43)
[2020-02-18] MEDS: Lactulose Oral Soln 20 GM/30 ML UDC PO SCH ×2 (08:01→20:40)
[2020-02-18] MEDS: Metoprolol XL (24 HR) Succ 50 MG TAB.ER.24H PO SCH (08:01)
[2020-02-18] MEDS: Aspirin 81 MG TAB.CHEW PO SCH (08:01)
[2020-02-18] MEDS: Cholecalciferol (D-3) 1,000 UNIT (25MCG) TABLET PO SCH (08:01)
[2020-02-18] MEDS: Spironolactone 25 MG TABLET PO SCH (08:01)
[2020-02-18] MEDS: Furosemide 40 MG/4 ML VIAL IVP SCH ×2 (08:01→20:44)
[2020-02-18] MEDS: lisinopriL 5 MG TABLET PO SCH (08:02)
[2020-02-18] MEDS: Morphine Sulfate Oral CONC 10 MG/0.5 ML ORAL.SYG SL PRN ×3 (10:43→23:15)
[2020-02-18] MEDS ORDERED: Acetaminophen 325 MG TABLET PO PRN (11:23)
[2020-02-18] MEDS: OLANZapine 10 MG TAB.RAPDIS PO SCH ×2 (18:28→21:28)
[2020-02-18] MEDS: Potassium Chloride Elixir 20 MEQ/15 ML UDC PO SCH (20:43)
[2020-02-19] MEDS: Levalbuterol Neb 1.25 MG/3 ML IH SCH ×6 (04:07→23:10)
[2020-02-19] MEDS: Morphine Sulfate ER (12 HR) 60 MG TABLET.ER PO SCH ×2 (06:31→18:58)
[2020-02-19] MEDS: *HR* Enoxaparin 40 MG/0.4 ML SYRINGE SQ SCH (06:31)
[2020-02-19] MEDS: Cholecalciferol (D-3) 1,000 UNIT (25MCG) TABLET PO SCH (09:24)
[2020-02-19] MEDS: Doxycycline 100 MG CAPSULE PO SCH ×2 (09:24→21:08)
[2020-02-19] MEDS: Metoprolol XL (24 HR) Succ 50 MG TAB.ER.24H PO SCH (09:24)
[2020-02-19] MEDS: Aspirin 81 MG TAB.CHEW PO SCH (09:24)
[2020-02-19] MEDS: Spironolactone 25 MG TABLET PO SCH (09:25)
[2020-02-19] MEDS: lisinopriL 5 MG TABLET PO SCH (09:25)
[2020-02-19] MEDS: Potassium Chloride Elixir 20 MEQ/15 ML UDC PO SCH ×2 (09:27→21:07)
[2020-02-19] MEDS: Lactulose Oral Soln 20 GM/30 ML UDC PO SCH ×2 (09:27→21:07)
[2020-02-19] MEDS: Furosemide 40 MG/4 ML VIAL IVP SCH ×2 (09:28→21:07)
[2020-02-19] MEDS: Morphine Sulfate Oral CONC 10 MG/0.5 ML ORAL.SYG SL PRN (11:41)
[2020-02-19 13:03] LABS: BUN/Creatinine Ratio 16 (6-26); Blood Urea Nitrogen 16 mg/dL (8-23); Calcium 8.1 mg/dL (8.6-10.3); Carbon Dioxide 45 mEq/L (23-29); Chloride 88 mEq/L (98-107); Glucose 98 mg/dL (70-105); Osmolality,Calculated 293 (280-300); Potassium 3.3 mEq/L (3.5-5.1); Sodium 141 mEq/L (136-145); eGFR For African Americans > 60 (> 60); eGFR For Non-African Americans > 60 (> 60)
[2020-02-19] MEDS: OLANZapine 10 MG TAB.RAPDIS PO SCH (21:08)
[2020-02-20 03:12] LABS: BUN/Creatinine Ratio 15 (6-26); Blood Urea Nitrogen 16 mg/dL (8-23); Calcium 7.8 mg/dL (8.6-10.3); Carbon Dioxide 45 mEq/L (23-29); Chloride 91 mEq/L (98-107); Glucose 116 mg/dL (70-105); Osmolality,Calculated 298 (280-300); Potassium 2.9 mEq/L (3.5-5.1); Sodium 143 mEq/L (136-145); eGFR For African Americans > 60 (> 60); eGFR For Non-African Americans > 60 (> 60)
[2020-02-20] MEDS: Levalbuterol Neb 1.25 MG/3 ML IH SCH ×6 (03:25→23:52)
[2020-02-20] MEDS ORDERED: Potassium Chloride 40 MEQ, Lidocaine 1% 2 ML in 0.9 % Sodium Chloride 500 ML IVPB ONE (03:45)
[2020-02-20] MEDS: Morphine Sulfate ER (12 HR) 60 MG TABLET.ER PO SCH (05:17)
[2020-02-20] MEDS: *HR* Enoxaparin 40 MG/0.4 ML SYRINGE SQ SCH (05:17)
[2020-02-20] MEDS: Morphine Sulfate Oral CONC 10 MG/0.5 ML ORAL.SYG SL PRN ×4 (06:23→22:22)
[2020-02-20] MEDS: Aspirin 81 MG TAB.CHEW PO SCH (09:55)
[2020-02-20] MEDS: Spironolactone 25 MG TABLET PO SCH (09:55)
[2020-02-20] MEDS: Lactulose Oral Soln 20 GM/30 ML UDC PO SCH (09:55)
[2020-02-20] MEDS: Doxycycline 100 MG CAPSULE PO SCH (09:55)
[2020-02-20] MEDS: Cholecalciferol (D-3) 1,000 UNIT (25MCG) TABLET PO SCH (09:56)
[2020-02-20] MEDS: lisinopriL 5 MG TABLET PO SCH (09:56)
[2020-02-20] MEDS: Potassium Chloride Elixir 20 MEQ/15 ML UDC PO SCH (09:56)
[2020-02-20] MEDS: Metoprolol XL (24 HR) Succ 50 MG TAB.ER.24H PO SCH (09:56)
[2020-02-20] MEDS: Furosemide 40 MG/4 ML VIAL IVP SCH (09:58)
[2020-02-20] MEDS ORDERED: Acetaminophen 650 MG RECTAL SUPP RC PRN (10:26)
[2020-02-20] MEDS ORDERED: *HR* FentaNYL (PF) 100 MCG/2 ML VIAL IVP PRN (13:18)
[2020-02-20] MEDS: *HR* FentaNYL PATCH 50 MCG PATCH TD SCH (13:58)
[2020-02-20] MEDS: Haloperidol Lactate 5 MG/ML VIAL IVP PRN ×2 (17:08→23:12)
[2020-02-20] MEDS: *HR* LORazepam Oral Conc 2 MG/ML SL PRN ×2 (17:09→22:22)
[2020-02-21] MEDS: *HR* LORazepam Oral Conc 2 MG/ML SL PRN ×3 (02:14→12:23)
[2020-02-21] MEDS: Morphine Sulfate Oral CONC 10 MG/0.5 ML ORAL.SYG SL PRN ×5 (02:15→20:43)
[2020-02-21] MEDS: Levalbuterol Neb 1.25 MG/3 ML IH SCH ×6 (03:35→23:45)
[2020-02-21] MEDS: Haloperidol Lactate 5 MG/ML VIAL IVP PRN ×2 (04:15→08:36)
[2020-02-21] MEDS ORDERED: Scopolamine Patch 1.5 MG PATCH.TD72 TD SCH (21:45)
[2020-02-21] MEDS: Glycopyrrolate 0.2 MG/ML VIAL IVP PRN (22:26)
[2020-02-22] MEDS: Levalbuterol Neb 1.25 MG/3 ML IH SCH ×5 (03:43→19:44)
[2020-02-22] MEDS: Morphine Sulfate Oral CONC 10 MG/0.5 ML ORAL.SYG SL PRN ×5 (06:18→21:37)
[2020-02-22] MEDS: Glycopyrrolate 0.2 MG/ML VIAL IVP PRN (06:29)
[2020-02-22] MEDS: Haloperidol Lactate 5 MG/ML VIAL IVP PRN ×3 (12:34→23:22)
[2020-02-22] MEDS: *HR* LORazepam Oral Conc 2 MG/ML SL PRN (16:02)
[2020-02-23] MEDS: Levalbuterol Neb 1.25 MG/3 ML IH SCH ×3 (00:02→07:58)
[2020-02-23] MEDS: *HR* LORazepam Oral Conc 2 MG/ML SL PRN ×2 (01:21→15:15)
[2020-02-23] MEDS: Morphine Sulfate Oral CONC 10 MG/0.5 ML ORAL.SYG SL PRN ×3 (08:26→13:37)
[2020-02-23] MEDS: Haloperidol Lactate 5 MG/ML VIAL IVP PRN (08:26)
[2020-02-23] MEDS ORDERED: Levalbuterol Neb 1.25 MG/3 ML IH PRN (09:57)
[2020-02-23] MEDS: *HR* FentaNYL PATCH 50 MCG PATCH TD SCH (13:36)
[2020-02-23] MEDS: Haloperidol Oral Conc 10 MG/5 ML UDC PO PRN (20:09)
[2020-02-24] MEDS: *HR* LORazepam Oral Conc 2 MG/ML SL PRN ×3 (00:14→21:10)
[2020-02-24] MEDS: Morphine Sulfate Oral CONC 10 MG/0.5 ML ORAL.SYG SL PRN ×6 (06:13→23:34)
[2020-02-24] MEDS: Haloperidol Oral Conc 10 MG/5 ML UDC PO PRN ×2 (13:30→20:03)
[2020-02-24 23:58] VITALS: BP 66/30
[2020-02-25] MEDS: Haloperidol Oral Conc 10 MG/5 ML UDC PO PRN (00:20)
== END 2020-02-25 02:57 | disposition expired | DRG 871 ==
LOC: SUATTDRO → EMEROOARM 11:48 → 3ANU 11:48 → SUATTDRO 15:03 → 3ANU 16:46 → SUATTDRO 02-13 10:10 → 2ANU 02-20 14:29
PROVIDERS: ADMIT Pharmacist; ATTEND Internal Medicine